=== PATIENT | female | born 1935 ===

== ENCOUNTER 2018-03-27 09:42 | Observation (INO) | payer MEDICARE ==
[2018-03-27 09:43] VITALS: BMI 20.7
--- NOTE | 2018-03-27 10:16 | C.PDOC ---
History Of Present Illness 82 y/o female with PMHx of DM, HTN, and arthritis, presents to the ED complaining of right-sided hip pain, worsening s/p fall last 03/20/18. Pain is worse with movement and ambulation. Patient reports she also fell earlier in the month on 03/11 and was evaluated outpatient with x-ray showing no acute fracture at that time. Patient has tried taking Tylenol without significant relief. States she was seen by her PMD, Dr. Merchant, who sent patient to the ED for further evaluation. Patient otherwise denies any numbness, tingl ing, focal weakness, chest pain, SOB, or other injuries. <Kita Chauhan - Last Filed: 03/27/18 13:01> History Per: Patient History/Exam Limitations: no limitations Onset/Duration Of Symptoms: Days Current Symptoms Are (Timing): Worse <Kita Chauhan - Last Filed: 03/27/18 13:01> <Lillie Viramontes - Last Filed: 04/04/18 11:48> Time Seen by Provider: 03/27/18 10:11 Chief Complaint (Nursing): Hip Pain Past Medical History Reviewed: Historical Data, Nursing Documentation, Vital Signs Vital Signs: Last Vital Signs Temp 98.4 F 03/27/18 09:58 Pulse 96 H 03/27/18 09:58 Resp 18 03/27/18 09:58 BP 161/77 H 03/27/18 09:58 Pulse Ox 96 03/27/18 09:58 - Medical History PMH: Arthritis, Colonic Polyps, Diabetes, HTN, Hypercholesterolemia, Kidney Stones (RIGHT; REMOVED 2012), Chronic Kidney Disease Other Surgeries: Left breast biopsy - [facility] Procedures COLONOSCOPY (05/03/14) Family History: States: No Known Family Hx - Social History Hx Alcohol Use: No Hx Substance Use: No - Immunization History Hx Tetanus Toxoid Vaccination: No Hx Influenza Vaccination: No Hx Pneumococcal Vaccination: No <Kita Chauhan - Last Filed: 03/27/18 13:01> Vital Signs: Last Vital Signs Temp 98.4 F 03/27/18 09:58 Pulse 96 H 03/27/18 09:58 Resp 18 03/27/18 09:58 BP 161/77 H 03/27/18 09:58 Pulse Ox 96 03/27/18 13:02 - [facility] Procedures COLONOSCOPY (05/03/14) <Lillie Viramontes - Last Filed: 04/04/18 11:48> Review Of Systems Except As Marked, All Systems Reviewed And Found Negative. Cardiovascular: Negative for: Chest Pain, Palpitations Respiratory: Negative for: Shortness of Breath Musculoskeletal: Positive for: Leg Pain (right hip pain) Skin: Negative for: Lesions, Bruising Neurological: Negative for: Weakness, Numbness, Incoordination <Kita Chauhan - Last Filed: 03/27/18 13:01> Physical Exam - Physical Exam Appears: Non-toxic, No Acute Distress Skin: Normal Color, Warm, Dry Head: Atraumatic, Normacephalic Eye(s): bilateral: Normal Inspection, PERRL, EOMI Oral Mucosa: Moist Neck: Normal ROM Chest: Symmetrical Cardiovascular: Rhythm Regular, No Murmur Respiratory: Normal Breath Sounds, No Accessory Muscle Use, Other (NARD) Gastrointestinal/Abdominal: Soft, No Tenderness, No Distention Back: No CVA Tenderness, No Vertebral Tenderness Extremity: Bilateral: Normal Color And Temperature, Other (Patient is weight bearing, + pain on ROM; No shortening or malrotation of bilateral LE) Pulses: Left Dorsalis Pedis: Normal, Right Dorsalis Pedis: Normal Neurological/Psych: Oriented x3, Normal Speech, Normal Cranial Nerves, Normal Motor, Normal Sensation, Other (No focal deficits) <Kita Chauhan - Last Filed: 03/27/18 13:01> ED Course And Treatment - Laboratory Results Result Diagrams: 03/27/18 11:00 03/27/18 11:00 ECG: Interpreted By Me, Viewed By Me ECG Rhythm: Sinus Rhythm ECG Interpretation: No Acute Changes Rate From EC O2 Sat by Pulse Oximetry: 96 (RA) Pulse Ox Interpretation: Normal - Other Rad Chest x-ray X-Ray: Read By Radiologist Interpretation: Accession No. : [id number]. Patient Name / ID : BRANDI RICHARDSON / [id number]. Exam Date : 03/27/2018 10:45:17 ( Approved ). Study Comment : Sex / Age : F / 82Y. Creator : Lisa Hartmann V. Dictator : Lisa Hartmann V. Information Support Project Manager : [employer] Charcoal Burner : Lisa Hartmann V. Approver2 : Report Date : 03/27/2018 11:07:50. My Comment : . Date of service: 03/27/2018. PROCEDURE: CHEST RADIOGRAPH, 1 VIEW. HISTORY: SYNCOPE. COMPARISON: 01/11/2017. FINDINGS: LUNGS: Clear. Clip apparently projecting over medial right lung base similar to before correlate clinically. May be superimposed over chest wall. No infiltrate. No mass seen. PLEURA: No pneumothorax or pleural fluid seen. CARDIOVASCULAR: There is presence of aortic atherosclerotic calcification on x- ray.. Tortuous thoracic aorta-as before. Probable top-normal heart size. No pulmonary venous congestion. OSSEOUS STRUCTURES: Mild dextroscoliosis and- similar. Mild bilateral shoulder arthrosis-similar. VISUALIZED UPPER ABDOMEN: Normal. OTHER FINDINGS: None. IMPRESSION: No interval pathology noted. XR R hip/pelvis X-Ray: Read By Radiologist Interpretation: Accession No. : [id number]. Patient Name / ID : BRANDI RICHARDSON R / [id number]. Exam Date : 03/27/2018 10:19:40 ( Approved ). Study Comment : Sex / Age : F / 82Y. Creator : Lisa Hartmann V. Dictator : Lisa Hartmann V. Information Support Project Manager : [employer] Charcoal Burner : Lisa Hartmann V. Approver2 : Report Date : 03/27/2018 10:48:51. My Comment : . Date of service: 03/27/2018. PROCEDURE: HISTORY: TRAUMA. COMPARISON: None. TECHNIQUE: AP pelvis and frog's leg view. FINDINGS: No fracture or dislocation. Bilateral superolateral hip joint space narrowing with bilateral superolateral acetabular spurring-actually left greater than right. L4-5 and L5-S1 sclerotic/hypertrophic facet arthrosis. Sacroiliac and pubic symphyseal joints unremarkable. IMPRESSION: No fracture or dislocation.. Degenerative changes as above <Kita Chauhan - Last Filed: 03/27/18 13:01> - Laboratory Results Result Diagrams: 03/28/18 07:35 03/27/18 11:00 - Physician Consult Information Physician Contacted: Travis Meza Outcome Of Conversation: Discussed patient with hospitalist, agrees with admission for syncope. <Lillie Viramontes - Last Filed: 04/04/18 11:48> Progress - Re-Evaluation Re-evaluation Note: 03/27/18 10:22 D/W DR MERCHANT: SP SYNCOPE 2 DAYS AGO ONSET AFTER WALKING TO BATHROOM, "SHE SAID NEXT THING SHE KNEW SHE WOKE UP ON FLOOR W EMESIS ON HER HERSELF". NOW W INTERMIT CRANDALL. CAD RISK FACTORS. NO HO KNOWN DYSRHYMTHIA, CAD. ADDL HX NOT RELATED BY PT DURING INITIAL EXAM. PT ADVISED NEED FOR ADMISSION FOR ADDITIONAL EVALUATION DUE TO SYNCOPE. PS DOES NOT WISH ADMISSION. EXPRESSES UNDERSTANDING IN ER OF RISKS OF LEAVING INCLUDING DISABILITY DETERIORATION AND . 03/27/18 12:04 D/W DR FOUNTAIN PT CARDIO WILL EVAL IN ER. DIMER PENDING. CT PENDING 03/27/18 12:23 +ABN DIMER. PS DOES NOT WANT ADMISSION PT AGAIN ADVISED NEED FOR ADMISSION AND ADVISED OF ABN RESULTS. NOW AGREES TO STAY - Data Reviewed Data Reviewed: Lab, Diagnostic imaging, EKG, Old records - Continuity of Care Discussed patient case with:: PMD <Kita Chauhan - Last Filed: 03/27/18 13:01> Medical Decision Making Medical Decision Making: Initial Impression: Right hip pain s/p fall Initial Plan: * X-ray right hip/pelvis * Toradol 30 mg IM * Lidoderm patch x1 After discussion w/ Dr. Merchant, ordered syncope work-up including CXR, EKG, labs. <Kita Chauhan - Last Filed: 11/01/18 13:01> Disposition Counseled Patient/Family Regarding: Studies Performed, Diagnosis - Disposition Disposition Time: 13:00 <Kita Chauhan - Last Filed: 03/27/18 13:01> - Disposition Disposition Time: 14:58 <Lillie Viramontes - Last Filed: 04/04/18 11:48> - Disposition Disposition: HOSPITALIZED Condition: STABLE - Clinical Impression Clinical Impression: Hip pain, Syncope, D-dimer, elevated - Scribe Statement The provider has reviewed the documentation as recorded by the Emilyibjennyfer Reyna Provider Attestation: All medical record entries made by the Emilyibjennyfer were at my direction and personally dictated by me. I have reviewed the chart and agree that the record accurately reflects my personal performance of the history, physical exam, medical decision making, and the department course for this patient. I have also personally directed, reviewed, and agree with the discharge instructions and disposition. <Kita Chauhan - Last Filed: 03/27/18 13:01> Physician Patient Turnover Patient Signed Over To: Lillie Viramontes Handoff Comments: FU CT, DISPO <Kita Chauhan - Last Filed: 03/27/18 13:01> Addendum Addendum: 03/27/18 14:32 Accession No. : [id number] Patient Name / ID : BRANDI RICHARDSON / [id number] Exam Date : 03/27/2018 13:34:33 ( Approved ) Study Comment : Sex / Age : F / 82Y Creator : Katlyn Allen MD Dictator : Katlyn Allen MD Information Support Project Manager : [employer] Charcoal Burner : Katlyn Allen MD Approver2 : Report Date : 03/27/2018 14:24:09 My Comment : Date of service: 03/27/2018 CTA chest PE protocol Indication: SYNCOPE r/o PE Technique: Contiguous axial images were obtained through the chest with intravenous contrast enhancement. Sagittal and coronal reconstructions were generated and reviewed. This CT exam was performed using 1 or more of the following dose reduction techniques: Automated exposure control, adjustment of the MAA and/or kV according to patient size, and/or use of iterative reconstruction technique. IV contrast: Radiation dose (DLP): 163.49 MGy-cm. Comparison: Chest x-ray performed 03/27/18 Findings: Visualized portions of the inferior thyroid gland appear unremarkable. The mediastinal and hilar vascular structures appear within normal limits. The heart appears within normal limits of size. Atherosclerotic calcification of the thoracic aorta. No large central or segmental pulmonary embolus evident. No focal consolidation. No pleural effusion. No pneumothorax. No suspicious pulmonary nodules measuring greater than 5 mm. Tiny calcified granulomas/lymph nodes at the right hilar region. Limited visualized portions of the upper abdomen appear grossly unremarkable. Degenerative changes of the spine. Right axillary clips. Right mastectomy. Impression: No large central or segmental pulmonary embolus identified. Additional findings as above. Accession No. : [id number] Patient Name / ID : BRANDI RICHARDSON / [id number] Exam Date : 03/27/2018 13:29:49 ( Approved ) Study Comment : Sex / Age : F / 82Y Creator : Katlyn Allen MD Dictator : Katlyn Allen MD Information Support Project Manager : [employer] Charcoal Burner : Katlyn Allen MD Approver2 : Report Date : 03/27/2018 13:45:22 My Comment : Date of service: 03/27/2018 PROCEDURE: CT HEAD WITHOUT CONTRAST. HISTORY: SYNCOPE, TRAUMA COMPARISON: Noncontrast head CT performed 07/25/17 TECHNIQUE: Axial computed tomography images were obtained through the head/brain without intravenous contrast. Radiation dose: Total exam DLP = 934.29 mGy-cm. This CT exam was performed using one or more of the following dose reduction techniques: Automated exposure control, adjustment of the mA and/or kV according to patient size, and/or use of iterative reconstruction technique. FINDINGS: Streak artifact obscures evaluation of the skull base. HEMORRHAGE: No intracranial hemorrhage. BRAIN: Diffuse atrophy with prominence of the ventricles and sulci noted. No mass effect or edema. Intracranial atherosclerosis. Scattered periventricular and subcortical white matter hypodensities, which are nonspecific, but often seen with chronic microvascular ischemic disease. Please note that MRI with diffusion imaging is more sensitive in the detection of acute ischemic event. VENTRICLES: No hydrocephalus. CALVARIUM: Unremarkable. PARANASAL SINUSES: Unremarkable as visualized. No significant inflammatory changes. MASTOID AIR CELLS: Unremarkable as visualized. No inflammatory changes. OTHER FINDINGS: None. IMPRESSION: Nonspecific white matter changes. Please note that MRI with diffusion imaging is more sensitive in the detection of acute ischemic event. <Lillie Viramontes - Last Filed: 04/04/18 11:48>
[2018-03-27] MEDS ORDERED: Lidocaine 5% Patch TD ONE ×2 (10:30→11:10)
--- NOTE | 2018-03-27 10:52 | RAD ---
Date of service: 03/27/2018 PROCEDURE: HISTORY: TRAUMA COMPARISON: None TECHNIQUE: AP pelvis and frog's leg view. FINDINGS: No fracture or dislocation. Bilateral superolateral hip joint space narrowing with bilateral superolateral acetabular spurring-actually left greater than right. L4-5 and L5-S1 sclerotic/hypertrophic facet arthrosis Sacroiliac and pubic symphyseal joints unremarkable IMPRESSION: No fracture or dislocation.. Degenerative changes as above
[2018-03-27 11:11] LABS: BASO # 0.1 K/uL (0.0-0.2); BASO % 0.5 % (0.0-2.0); EOS % 0.3 % (0.0-4.0); HEMOGLOBIN 11.7 g/dL (11.0-16.0); LYMPH # 1.1 K/uL (1.0-4.3); MEAN CELL VOLUME 92.6 fL (81.0-99.0); MEAN CORPUSCULAR HEMOGLOBIN 31.1 pg (27.0-31.0); MEAN CORPUSCULAR HGB CONC 33.6 g/dL (33.0-37.0); MEAN PLATELET VOLUME 8.1 fL (7.2-11.7); MONO # 0.8 K/uL (0.0-0.8); MONO % 6.7 % (0.0-10.0); NEUT # 10.2 K/uL (1.8-7.0); NEUT % 83.5 % (50.0-75.0); NRBC % 0.1 % (0.0-2.0); PLATELET COUNT 373 K/uL (130-400); RBC 3.75 Mil/uL (3.80-5.20); RED CELL DISTRIBUTION WIDTH 13.2 % (11.5-14.5); WHITE BLOOD COUNT 12.2 K/uL (4.8-10.8)
--- NOTE | 2018-03-27 11:11 | RAD ---
Date of service: 03/27/2018 PROCEDURE: CHEST RADIOGRAPH, 1 VIEW HISTORY: SYNCOPE COMPARISON: 01/11/2017 FINDINGS: LUNGS: Clear. Clip apparently projecting over medial right lung base similar to before correlate clinically. May be superimposed over chest wall. No infiltrate. No mass seen. PLEURA: No pneumothorax or pleural fluid seen. CARDIOVASCULAR: There is presence of aortic atherosclerotic calcification on x-ray.. Tortuous thoracic aorta-as before. Probable top-normal heart size. No pulmonary venous congestion OSSEOUS STRUCTURES: Mild dextroscoliosis and-similar. Mild bilateral shoulder arthrosis-similar VISUALIZED UPPER ABDOMEN: Normal. OTHER FINDINGS: None. IMPRESSION: No interval pathology noted.
[2018-03-27 11:26] LABS: ALB/GLOB RATIO 1.3 (1.0-2.1); ALBUMIN 4.3 g/dL (3.5-5.0); ALT/SGPT 41 U/L (9-52); AST/SGOT 81 U/L (14-36); BLOOD UREA NITROGEN 26 mg/dL (7-17); CALCIUM 10.1 mg/dl (8.6-10.4); GFR NON-AFRICAN AMERICAN 53
[2018-03-27 12:00] LABS: BASOPHIL 1 % (0-2); LYMPHOCYTE 8 % (20-40); MONOCYTE 4 % (0-10); NEUTROPHIL 87 % (50-75); PLATELET ESTIMATE NORMAL (NORMAL); TOTAL CELLS COUNTED 100
[2018-03-27] MEDS ORDERED: Iodixanol 320 MG/ML 100 ML BOTTLE IV ONE (13:25)
--- NOTE | 2018-03-27 13:49 | CT ---
Date of service: 03/27/2018 PROCEDURE: CT HEAD WITHOUT CONTRAST. HISTORY: SYNCOPE, TRAUMA COMPARISON: Noncontrast head CT performed 07/25/17 TECHNIQUE: Axial computed tomography images were obtained through the head/brain without intravenous contrast. Radiation dose: Total exam DLP = 934.29 mGy-cm. This CT exam was performed using one or more of the following dose reduction techniques: Automated exposure control, adjustment of the mA and/or kV according to patient size, and/or use of iterative reconstruction technique. FINDINGS: Streak artifact obscures evaluation of the skull base. HEMORRHAGE: No intracranial hemorrhage. BRAIN: Diffuse atrophy with prominence of the ventricles and sulci noted. No mass effect or edema. Intracranial atherosclerosis. Scattered periventricular and subcortical white matter hypodensities, which are nonspecific, but often seen with chronic microvascular ischemic disease. Please note that MRI with diffusion imaging is more sensitive in the detection of acute ischemic event. VENTRICLES: No hydrocephalus. CALVARIUM: Unremarkable. PARANASAL SINUSES: Unremarkable as visualized. No significant inflammatory changes. MASTOID AIR CELLS: Unremarkable as visualized. No inflammatory changes. OTHER FINDINGS: None. IMPRESSION: Nonspecific white matter changes. Please note that MRI with diffusion imaging is more sensitive in the detection of acute ischemic event.
--- NOTE | 2018-03-27 14:28 | CT ---
Date of service: 03/27/2018 CTA chest PE protocol Indication: SYNCOPE r/o PE Technique: Contiguous axial images were obtained through the chest with intravenous contrast enhancement. Sagittal and coronal reconstructions were generated and reviewed. This CT exam was performed using 1 or more of the following dose reduction techniques: Automated exposure control, adjustment of the MAA and/or kV according to patient size, and/or use of iterative reconstruction technique. IV contrast: Radiation dose (DLP): 163.49 MGy-cm. Comparison: Chest x-ray performed 03/27/18 Findings: Visualized portions of the inferior thyroid gland appear unremarkable. The mediastinal and hilar vascular structures appear within normal limits. The heart appears within normal limits of size. Atherosclerotic calcification of the thoracic aorta. No large central or segmental pulmonary embolus evident. No focal consolidation. No pleural effusion. No pneumothorax. No suspicious pulmonary nodules measuring greater than 5 mm. Tiny calcified granulomas/lymph nodes at the right hilar region. Limited visualized portions of the upper abdomen appear grossly unremarkable. Degenerative changes of the spine. Right axillary clips. Right mastectomy. Impression: No large central or segmental pulmonary embolus identified. Additional findings as above.
[2018-03-27 15:02] VITALS: RESP 20
[2018-03-27] MEDS ORDERED: Glucagon Recombinant 1 mg Inj IM PRN (17:33)
[2018-03-27] MEDS ORDERED: Dextrose 50% SYRINGE Inj (50 ml) IV PRN (17:33)
--- NOTE | 2018-03-27 17:37 | CP.PCM.HP ---
<Stefanie Bell - Last Filed: 03/27/18 17:22> History of Present Illness - History of Present Illness History of Present Illness: cc: "Dr. Merchant told me to." Ms. Arreola is a 82 year old female PMH hypertension, diabetes, hyperlipidemia, osteoporosis comes to [facility] after two falls in the last two weeks at the urging of her PMD, Dr. Merchant. On 03/11, she tripped while walking on the sidewalk. She fell onto her right side, landing on her elbow with no LOC and did not hit her head. She already had an appointment with Dr. Merchant, and was released with advice to take it easy. On 03/20 around 10am, she started feeling dizzy, started to sweat, and experienced a sudden hot flash while in her bathroom. She attempted to reach the window to open it, but lost consciousness. She woke up an undetermined amount of time later in a pool of NBNB vomit consisting of her breakfast: coffee, eggs, toast. She immediately began cleaning up and went about her day. Denied chest pain, shortness of breath, headache, nausea, joint swelling at that time. Yesterday, 03/26, Dr. Merchant called the pat ient to follow up with the first fall. The patient explained the events and was encouraged to come to the ED. Patient refused. However, this morning, she once again experienced dizziness and began to be flushed. She sat down, which allowed her to not fall nor lose consciousness, and came to the ED. PMD: Dr. Merchant Cardio: Dr. Mendoza PMH: HTN, DM, HLD, osteoporosis Med: ASA, Fenofibrate, Simvastatin, Valsartan, Amlodipine, Metformin, Alendronate All: NKDA FamHx: Father - DM, both sides: HTN. Denies [place], stroke, [place] SocHx: Denies ever tobacco, alcohol, illicit drugs SurgHx: 1996 - R total mastectomy, 2013 - colonoscopy, 2017 - bilateral cataract removal Cmm Inspector: menopause at 49, denies sexual activity Proxy: refuses. Son lives in [place] - Edward Stauffer DNR/DNI Present on Admission - Present on Admission Any Indicators Present on Admission: No Review of Systems - Constitutional Constitutional: Excessive Sweating, Fatigue, Weight Loss, Weakness. absent: Chills, Fever, Frequent Falls, Headache, Night Sweats - EENT Eyes: absent: Blurred Vision, Change in Vision, Diplopia Ears: absent: Decreased Hearing, Tinnitus Nose/Mouth/Throat: absent: Dysphagia, Odynophagia - Cardiovascular Cardiovascular: Syncope. absent: Chest Pain, Diaphoresis, Dyspnea, Dyspnea on Exertion, Irregular Heart Rhythm, Orthopnea - Respiratory Respiratory: absent: Cough, Dyspnea, Hemoptysis, Dyspnea on Exertion - Gastrointestinal Gastrointestinal: Vomiting. absent: Constipation, Diarrhea, Dysphagia, Nausea - Genitourinary Genitourinary: Urinary Frequency. absent: Difficulty Urinating, Urinary Hesitance, Urinary Urgency, Freq UTI - Reproductive: Female Reproductive:Female: Menopausal - Musculoskeletal Musculoskeletal: Abnormal Gait, Back Pain, Limited Range of Motion, Muscle Weakness. absent: Deformity, Joint Swelling, Numbness, Tingling - Integumentary Integumentary: Swelling. absent: Rash, Skin Ulcer, Sores - Neurological Neurological: Abnormal Gait, Dizziness, Headaches, Syncope, Weakness. absent: Abnormal Hearing, Burning Sensations, Confusion, Convulsions, Focal Weakness, Tingling - Psychiatric Psychiatric: absent: Confusion, Hallucinations - Endocrine Endocrine: Excessive Sweating, Fatigue, Flushing, Polyuria. absent: Heat Intolorance - Hematologic/Lymphatic Hematologic: absent: Easy Bleeding, Easy Bruising Past Patient History - Infectious Disease Hx of Infectious Diseases: None - Past Medical History & Family History Past Medical History?: Yes Pertinent Family History: Father - DM. both sides: HTN - Past Social History Smoking Status: Never Smoked Alcohol: None Drugs: Denies - CARDIAC Hx Cardiac Disorders: Yes Hx Hypercholesterolemia: Yes Hx Hypertension: Yes - PULMONARY Hx Respiratory Disorders: No - NEUROLOGICAL Hx Neurological Disorder: Yes Hx Vertigo: Yes - HEENT Hx HEENT Problems: Yes Hx Cataracts: Yes (LEFT EYE) - RENAL Hx Chronic Kidney Disease: Yes Hx Kidney Stones: Yes (RIGHT; REMOVED 2012) - ENDOCRINE/METABOLIC Hx Endocrine Disorders: Yes Hx Diabetes Mellitus Type 2: Yes - HEMATOLOGICAL/ONCOLOGICAL Hx Blood Disorders: No - INTEGUMENTARY Hx Dermatological Problems: No - MUSCULOSKELETAL/RHEUMATOLOGICAL Hx Musculoskeletal Disorders: Yes Hx Arthritis: Yes Hx Falls: Yes - GASTROINTESTINAL Hx Gastrointestinal Disorders: No - GENITOURINARY/GYNECOLOGICAL Hx Genitourinary Disorders: No - PSYCHIATRIC Hx Psychophysiologic Disorder: No Hx Substance Use: No - SURGICAL HISTORY Hx Surgeries: Yes Hx Breast Biopsy: Yes (LEFT BREAST) Hx Mastectomy: Yes - ANESTHESIA Hx Anesthesia: Yes Hx Anesthesia Reactions: No Hx Malignant Hyperthermia: No Has any member of the family had a problem w/ anesthesia?: No Meds Allergies/Adverse Reactions: Allergies Allergy/AdvReac Type Severity Reaction Status Date / Time No Known Allergies Allergy Verified 05/03/14 08:21 Physical Exam - Constitutional Appears: Well, No Acute Distress - Head Exam Head Exam: ATRAUMATIC, NORMOCEPHALIC - Eye Exam Eye Exam: EOMI, PERRL - ENT Exam ENT Exam: Mucous Membranes Moist - Neck Exam Neck exam: Positive for: Normal Inspection. Negative for: Lymphadenopathy, Thyromegaly - Respiratory Exam Respiratory Exam: Clear to Auscultation Bilateral, NORMAL BREATHING PATTERN. absent: Accessory Muscle Use, Rales, Rhonchi, Wheezes - Cardiovascular Exam Cardiovascular Exam: REGULAR RHYTHM, +S1, +S2. absent: Gallop, Rubs, Systolic Murmur - GI/Abdominal Exam GI & Abdominal Exam: Normal Bowel Sounds, Soft. absent: Distended, Firm, Guar ding, Tenderness - Extremities Exam Extremities exam: Positive for: normal capillary refill, pedal pulses present. Negative for: joint swelling, pedal edema Additional comments: Lateral aspect of R elbow: 2in x 1.5 in well healing yellow/green bruise appropriate with stated timeline Limited Active ROM in F/E/Abduction of R hip. Full ROM of L hip. Patient unable to relax to test Passive ROM Muscle strength: 4/5 throughout peripheral pulses palpable bilaterally (radial, DP, PT) IV access in L forearm - Back Exam Back exam: muscle spasm, tenderness. absent: CVA tenderness (L), CVA tenderness (R), paraspinal tenderness, vertebral tenderness Additional comments: TTP above sacrum where patient fell. Lidoderm patch in place - Neurological Exam Neurological exam: Abnormal Gait, Alert, CN II-XII Intact, Oriented x3, Reflexes Normal Additional comments: Able to weight bear, limp preferring weight bearing on L side - Psychiatric Exam Psychiatric exam: Normal Affect, Normal Mood - Skin Skin Exam: Dry, Intact, Normal Color, Warm Additional comments: except noted above Results - Vital Signs Recent Vital Signs: Last Vital Signs Temp 98 F 03/27/18 16:31 Pulse 88 03/27/18 16:31 Resp 20 03/27/18 16:31 BP 146/68 03/27/18 16:31 Pulse Ox 98 03/27/18 16:31 - Labs Result Diagrams: 03/27/18 11:00 03/27/18 11:00 Labs: Laboratory Results - last 24 hr 03/27/18 03/27/18 03/27/18 11:00 11:00 11:00 WBC 12.2 H RBC 3.75 L Hgb 11.7 Hct 34.7 MCV 92.6 MCH 31.1 H MCHC 33.6 RDW 13.2 Plt Count 373 MPV 8.1 Neut % (Auto) 83.5 H Lymph % (Auto) 9.0 L [place] % (Auto) 6.7 Eos % (Auto) 0.3 Baso % (Auto) 0.5 Neut # (Auto) 10.2 H Lymph # (Auto) 1.1 [place] # (Auto) 0.8 Eos # (Auto) 0.0 Baso # (Auto) 0.1 Neutrophils % (Manual) 87 H Lymphocytes % (Manual) 8 L Monocytes % (Manual) 4 Basophils % (Manual) 1 Platelet Estimate Normal RBC Morphology Normal D-Dimer, Quantitative 1663 H Sodium 141 Potassium 4.2 Chloride 106 Carbon Dioxide 24 Anion Gap 16 BUN 26 H Creatinine 1.0 Est GFR ( Amer) > 60 Est GFR (Non-Af Amer) 53 POC Glucose (mg/dL) Random Glucose 124 H Calcium 10.1 Total Bilirubin 0.9 AST 81 H D ALT 41 Alkaline Phosphatase 126 D Total Protein 7.6 Albumin 4.3 Globulin 3.2 Albumin/Globulin Ratio 1.3 03/27/18 11:42 WBC RBC Hgb Hct MCV MCH MCHC RDW Plt Count MPV Neut % (Auto) Lymph % (Auto) [place] % (Auto) Eos % (Auto) Baso % (Auto) Neut # (Auto) Lymph # (Auto) [place] # (Auto) Eos # (Auto) Baso # (Auto) Neutrophils % (Manual) Lymphocytes % (Manual) Monocytes % (Manual) Basophils % (Manual) Platelet Estimate RBC Morphology D-Dimer, Quantitative Sodium Potassium Chloride Carbon Dioxide Anion Gap BUN Creatinine Est GFR ( Amer) Est GFR (Non-Af Amer) POC Glucose (mg/dL) 114 H Random Glucose Calcium Total Bilirubin AST ALT Alkaline Phosphatase Total Protein Albumin Globulin Albumin/Globulin Ratio - EKG Data EKG Interpreted by: ER Physician EKG shows normal: Sinus rhythm Rate: Normal Assessment & Plan - Assessment and Plan (Free Text) Assessment: Ms. Arreola is a 82yo female PMH HTN, DM, HLD, osteoporosis admitted for syncope workup s/p 2 recent falls. Plan: Syncope with two recent falls - CXR (03/27): no interval pathology noted - XR Hip/Pelvis (03/27): no fracture or dislocation - CT Head (03/27): Nonspecific white matter changes. No acute findings. - d-dimer 1663 - CTA (03/27): no large central or segmental PE identified - f/u TSH, free T4 - f/u total CK, CK-MM, CK-MB - f/u VitB12, folate, RPR (with reflex FTA-ABS) - f/u ROMIs and EKGs @ 4:30pm, 10pm, 4am - f/u ECHO - f/u carotid Doppler - f/u XR R elbow - Lidoderm patch TOP daily for back pain - fall risk protocol - Cardio consulted: Dr. eMndoza - artemio appreciated - Neuro consulted: Dr. Newman - artemio appreciated Leukocytosis with left shift - likely 2/2 stress response - WBC 12.2 on admission - afebrile and hemodynamically stable - f/u UA - reflex urine c/s if positive - CXR (03/27): no active pulmonary disease - will hold off on blood and urine Cx for now - monitor with AM labs Hypertension - f/u lipid panel - home Valsartan 80mg po daily - home Amlodipine 5mg po daily - staggered so Valsartan in AM and Amlodipine in PM - monitor vitals Hyperlipidemia - home ASA 81mg po daily - home Simvastatin 20mg -> Crestor 5mg po HS - home Fenofibrate 145mg po daily Diabetes Mellitus - f/u Hgb A1c - hold home Metformin 500mg po daily d/t CTA IV contrast. Will restart on Sat evening, 48hrs after CTA. - Accuchecks ACHS - mod ISS - hypoglycemia protocol Osteoporosis - held home Fosamax 1 tab po q7d d/t unknown day of the week - Calcium/VitD 500/200 supplement 1 tab po tid PPx - DVT: Heparin 5000u sc q8, SCDs - GI: not indicated - Diet: HHD 2g Na, low carb - PT/OT consulted d/w Dr. Zay Bell PGY-1 - Date & Time Date: 03/27/18 Time: 16:15 <Travis Meza - Last Filed: 03/30/18 20:34> Results - Vital Signs Recent Vital Signs: Last Vital Signs Temp 98.0 F 03/28/18 15:00 Pulse 80 03/28/18 15:00 Resp 20 03/28/18 15:00 BP 141/69 03/28/18 15:00 Pulse Ox 97 03/28/18 15:00 - Labs Result Diagrams: 03/28/18 07:35 03/27/18 11:00 Attending/Attestation - Attestation I have personally seen and examined this patient.: Yes I have fully participated in the care of the patient.: Yes I have reviewed all pertinent clinical information: Yes Notes (Text): 03/30/18 20:33 This is a late entry. History, Physical, Assessment and Plan, and all orders were gone over with the resident. Travis Meza D.O.
[2018-03-27] MEDS: Calcium-Vit D 500 mg-200 Units Tab UD PO SCH (17:57)
[2018-03-27 18:31] LABS: CK-MB 0.44 ng/mL (0.0-3.38)
--- NOTE | 2018-03-27 18:56 | CP.PCM.CON ---
History of Present Illness - History of Present Illness History of Present Illness: Neurology Consultation Note: Mrs. Arreola is an 82-year-old woman, who was referred to me by Dr. Bell, with a past medical history of DM, HTN, HLD, who presented to the ED yesterday after complaining of dizziness to her PMD. According to the patient, about a week ago, she had a fall after rising from the toilet and lost consciousness. She did not sustain any injuries. She did not have any urinary/bowel incontinence, tongue biting, etc. The fall was not witnessed. However, about a week earlier than that fall, she had another fall without loss of consciousness, but did feel dizzy. She states that prior to the fall, she was feeling light-headed. Review of Systems - Constitutional Constitutional: As Per HPI - EENT Eyes: absent: As Per HPI, Blind Spots, Blurred Vision, Change in Vision, Decreased Night Vision, Diplopia, Discharge, Dry Eye, Exophthalmos, Floaters, Irritation, Itchy Eyes, Loss of Peripheral Vision, Pain, Photophobia, Requires Corrective Lenses, Sees Flashes, Spots in Vision, Tunnel Vision, Other Visual Disturbances, Loss of Vision, Other Ears: absent: As Per HPI, Decreased Hearing, Ear Discharge, Ear Pain, Tinnitus, Abnormal Hearing, Disequilibrium, Dizziness, Other Nose/Mouth/Throat: absent: As Per HPI, Epistaxis, Nasal Congestion, Nasal Di scharge, Nasal Obstruction, Nasal Trauma, Nose Pain, Post Nasal Drip, Sinus Pain, Sinus Pressure, Bleeding Gums, Change in Voice, Dental Pain, Dry Mouth, Dysphagia, Halitosis, Hoarsness, Lip Swelling, Mouth Lesions, Mouth Pain, Odynophagia, Sore Throat, Throat Swelling, Tongue Swelling, Facial Pain, Neck Pain, Neck Mass, Other - Breasts Breasts: absent: As Per HPI, Change in Shape, Mass, Pain, Nipple Discharge, Nipple Inversion, Skin Changes, Swelling, Other - Cardiovascular Cardiovascular: absent: As Per HPI, Acrocyanosis, Chest Pain, Chest Pain at Rest, Chest Pain with Activity, Claudication, Diaphoresis, Dyspnea, Dyspnea on Exertion, Edema, Irregular Heart Rhythm, Pain Radiating to Arm/Neck/Jaw, Leg Edema, Leg Ulcers, Lightheadedness, Orthopnea, Palpitations, Paroxysmal Nocturnal Dyspnea, Pedal Edema, Radiating Pain, Rapid Heart Rate, Slow Heart Rate, Syncope, Other - Respiratory Respiratory: absent: As Per HPI, Cough, Dyspnea, Hemoptysis, Dyspnea on Exertion, Wheezing, Snoring, Stridor, Pain on Inspiration, Chest Congestion, Excessive Mucous Production, Change in Mucous Color, Pain with Coughing, Other - Gastrointestinal Gastrointestinal: absent: As Per HPI, Abdominal Pain, Belching, Bloating, Change in Bowel Habits, Change in Stool Character, Coffee Ground Emesis, Constipation, Cramping, Diarrhea, Dyspepsia, Dysphagia, Early Satiety, Excessive Flatus, Fecal Incontinence, Heartburn, Hematemesis, Hematochezia, Loose Stools, Melena, Nausea, Odynophagia, Temesmus, Vomiting, Other - Genitourinary Genitourinary: absent: As Per HPI, Change in Urinary Stream, Difficulty Urinating, Dysuria, Flank Pain, Hematuria, Pyuria, Nocturia, Urinary Incontinence, Urinary Frequency, Urinary Hesitance, Urinary Urgency, Voiding Freq/Small Amts, Freq UTI, Hx Renal/Bladder Calculi, Hx /Renal Surgery, Bladder Distension, Other - Musculoskeletal Musculoskeletal: absent: As Per HPI, Abnormal Gait, Arthralgias, Atrophy, Back Pain, Deformity, Joint Swelling, Limited Range of Motion, Loss of Height, Muscle Cramps, Muscle Weakness, Myalgias, Neck Pain, Numbness, Radiating Pain into Limb, Stiffness, Tingling, Other - Integumentary Integumentary: absent: As Per HPI, Acne, Alopecia, Bleeding Lesions, Change in Hair, Change in Nails, Change in Pigmentation, Changing Lesions, Dry Skin, Erythema, Furuncle, Hirsutism, Lesions, New Lesions, Non-Healing Lesions, Photosensitivity, Pruritus, Rash, Skin Pain, Skin Ulcer, Sores, Striae, Swelling, Unusual Bruising, Wounds, Jaundice, Other - Neurological Neurological: As Per HPI - Psychiatric Psychiatric: absent: As Per HPI, Abnormal Sleep Pattern, Anhedonia, Anxiety, Auditory Hallucinations, Behavioral Changes, Change in Appetite, Change in Libido, Confusion, Depression, Difficulty Concentrating, Hallucinations, Homicidal Ideation, Hopelessness, Irritability, Memory Loss, Mood Swings, Panic Attacks, Paranoia, Suicidal Ideation, Visual Hallucinations, Tactile Hallucinations, Other - Endocrine Endocrine: absent: As Per HPI, Change in Body Appearance, Change in Libido, Cold Intolorance, Deepening of Voice, Excessive Sweating, Fatigue, Flushing, Heat Intolorance, Increase in Ring/Shoe/Hat Size, Palpitations, Polydipsia, Polyphagia, Polyuria, Other - Hematologic/Lymphatic Hematologic: absent: As Per HPI, Easy Bleeding, Easy Bruising, Lymphadenopathy, Other Past Patient History - Infectious Disease Hx of Infectious Diseases: None - Past Medical History & Family History Past Medical History?: Yes - Past Social History Smoking Status: Never Smoked Alcohol: None Drugs: Denies - CARDIAC Hx Cardiac Disorders: Yes Hx Hypercholesterolemia: Yes Hx Hypertension: Yes - PULMONARY Hx Respiratory Disorders: No - NEUROLOGICAL Hx Neurological Disorder: Yes Hx Vertigo: Yes - HEENT Hx HEENT Problems: Yes Hx Cataracts: Yes (LEFT EYE) - RENAL Hx Chronic Kidney Disease: Yes Hx Kidney Stones: Yes (RIGHT; REMOVED 2012) - ENDOCRINE/METABOLIC Hx Endocrine Disorders: Yes Hx Diabetes Mellitus Type 2: Yes - HEMATOLOGICAL/ONCOLOGICAL Hx Blood Disorders: No - INTEGUMENTARY Hx Dermatological Problems: No - MUSCULOSKELETAL/RHEUMATOLOGICAL Hx Musculoskeletal Disorders: Yes Hx Arthritis: Yes Hx Falls: Yes - GASTROINTESTINAL Hx Gastrointestinal Disorders: No - GENITOURINARY/GYNECOLOGICAL Hx Genitourinary Disorders: No - PSYCHIATRIC Hx Psychophysiologic Disorder: No Hx Substance Use: No - SURGICAL HISTORY Hx Surgeries: Yes Hx Breast Biopsy: Yes (LEFT BREAST) Hx Mastectomy: Yes - ANESTHESIA Hx Anesthesia: Yes Hx Anesthesia Reactions: No Hx Malignant Hyperthermia: No Has any member of the family had a problem w/ anesthesia?: No Meds Allergies/Adverse Reactions: Allergies Allergy/AdvReac Type Severity Reaction Status Date / Time No Known Allergies Allergy Verified 05/03/14 08:21 - Medications Medications: Current Medications Amlodipine Besylate (Norvasc) 5 mg PO HS SUSAN Aspirin (Ecotrin) 81 mg PO DAILY [facility] Calcium/Vitamin D (Oyster Shell Calcium/Vitamin D 500 Mg-200 Iu) 1 tab PO TID [facility] Last Admin: 03/27/18 17:57 Dose: 1 tab Dextrose (Dextrose 50% Inj) 0 ml IV STAT PRN; Protocol PRN Reason: Hypoglycemia Protocol Dextrose (Glutose 15) 0 gm PO ONCE PRN; Protocol PRN Reason: Hypoglycemia Protocol Fenofibrate (Tricor) 145 mg PO DAILY [facility] Glucagon (Glucagen Diagnostic Kit) 0 mg IM STAT PRN; Protocol PRN Reason: Hypoglycemia Protocol Heparin Sodium (Porcine) (Heparin) 5,000 units SC Q8 SUSAN Dextrose (Dextrose 5% In Water 1000 Ml) 1,000 mls @ 0 mls/hr IV .Q0M PRN; Protocol PRN Reason: Hypoglycemia Protocol Insulin Aspart (Novolog) 0 unit SC ACHS SUSAN; Protocol Lidocaine (Lidoderm) 1 ea TD DAILY SUASN Losartan Potassium (Cozaar) 50 mg PO DAILY SUSAN Rosuvastatin Calcium (Crestor) 5 mg PO HS SUSAN Physical Exam - Constitutional Appears: Well - Head Exam Head Exam: ATRAUMATIC, NORMAL INSPECTION, NORMOCEPHALIC - Eye Exam Eye Exam: EOMI, Normal appearance, PERRL - ENT Exam ENT Exam: Mucous Membranes Moist, Normal Exam - Neck Exam Neck exam: Positive for: Normal Inspection - Respiratory Exam Respiratory Exam: Clear to Auscultation Bilateral, NORMAL BREATHING PATTERN - Cardiovascular Exam Cardiovascular Exam: REGULAR RHYTHM, +S1, +S2 - GI/Abdominal Exam GI & Abdominal Exam: Normal Bowel Sounds, Soft. absent: Tenderness - Rectal Exam Rectal Exam: Deferred - Back Exam Back exam: NORMAL INSPECTION - Neurological Exam Neurological exam: Alert, CN II-XII Intact, Normal Gait, Oriented x3, Reflexes Normal - Psychiatric Exam Psychiatric exam: Normal Affect, Normal Mood - Skin Skin Exam: Dry, Intact, Normal Color, Warm Results - Vital Signs Recent Vital Signs: Last Vital Signs Temp 98 F 03/27/18 16:31 Pulse 88 03/27/18 16:31 Resp 20 03/27/18 16:31 BP 146/68 03/27/18 16:31 Pulse Ox 98 03/27/18 16:31 - Labs Result Diagrams: 03/27/18 11:00 03/27/18 11:00 Labs: Laboratory Results - last 24 hr 03/27/18 03/27/18 03/27/18 11:00 11:00 11:00 WBC 12.2 H RBC 3.75 L Hgb 11.7 Hct 34.7 MCV 92.6 MCH 31.1 H MCHC 33.6 RDW 13.2 Plt Count 373 MPV 8.1 Neut % (Auto) 83.5 H Lymph % (Auto) 9.[address] [place] % (Auto) 6.7 Eos % (Auto) 0.3 Baso % (Auto) 0.5 Neut # (Auto) 10.2 H Lymph # (Auto) 1.1 [place] # (Auto) 0.8 Eos # (Auto) 0.0 Baso # (Auto) 0.1 Neutrophils % (Manual) 87 H Lymphocytes % (Manual) 8 L Monocytes % (Manual) 4 Basophils % (Manual) 1 Platelet Estimate Normal RBC Morphology Normal D-Dimer, Quantitative 1663 H Sodium 141 Potassium 4.2 Chloride 106 Carbon Dioxide 24 Anion Gap 16 BUN 26 H Creatinine 1.0 Est GFR ( Amer) > 60 Est GFR (Non-Af Amer) 53 POC Glucose (mg/dL) Random Glucose 124 H Calcium 10.1 Total Bilirubin 0.9 AST 81 H D ALT 41 Alkaline Phosphatase 126 D Total Creatine Kinase CK-MB (Mass) Troponin I Total Protein 7.6 Albumin 4.3 Globulin 3.2 Albumin/Globulin Ratio 1.3 Free T4 TSH 3rd Generation 03/27/18 03/27/18 03/27/18 11:42 17:48 17:48 WBC RBC Hgb Hct MCV MCH MCHC RDW Plt Count MPV Neut % (Auto) Lymph % (Auto) [place] % (Auto) Eos % (Auto) Baso % (Auto) Neut # (Auto) Lymph # (Auto) [place] # (Auto) Eos # (Auto) Baso # (Auto) Neutrophils % (Manual) Lymphocytes % (Manual) Monocytes % (Manual) Basophils % (Manual) Platelet Estimate RBC Morphology D-Dimer, Quantitative Sodium Potassium Chloride Carbon Dioxide Anion Gap BUN Creatinine Est GFR ( Amer) Est GFR (Non-Af Amer) POC Glucose (mg/dL) 114 H Random Glucose Calcium Total Bilirubin AST ALT Alkaline Phosphatase Total Creatine Kinase 29 L CK-MB (Mass) 0.44 Troponin I < 0.0120 Total Protein Albumin Globulin Albumin/Globulin Ratio Free T4 1.59 TSH 3rd Generation 1.41 Assessment & Plan (1) Syncope Assessment and Plan: Based on the history of standing up after a bowel movement, and having dizziness followed by a syncopal episode, the patient likely has neuro-cardiogenic or vasovagal syncope. However, since the events have occurred twice in the last two weeks, I recommend work-up with CTA of the head/neck to rule out vertebro- basilar insufficiency. There is no indication that the events were seizures. Cardiac work-up is also recommended. Thank you for this consultation. Status: Acute Priority: Medium
[2018-03-27 19:17] LABS: SQUAMOUS EPITHIAL 1 /hpf (0-5); URINE BILIRUBIN NEGATIVE (NEGATIVE); URINE BLOOD 1+ (NEGATIVE); URINE CLARITY Clear (Clear); URINE COLOR Yellow (YELLOW); URINE GLUCOSE (UA) NORMAL (Normal); URINE LEUKOCYTE ESTERASE NEG Leu/uL (Negative); URINE PROTEIN NEGATIVE (NEGATIVE)
--- NOTE | 2018-03-27 21:54 | CP.PCM.CON ---
History of Present Illness - History of Present Illness History of Present Illness: cc: Syncope Ms. Arreola is a 82 year old female PMH hypertension, diabetes, hyperlipidemia, osteoporosis comes to [facility] after two falls in the last two weeks at the urging of her PMD, Dr. Merchant. On 03/11, she tripped while walking on the sidewalk. She fell onto her right side, landing on her elbow with no LOC and did not hit her head. She already had an appointment with Dr. Merchant, and was released with advice to take it easy. On 03/20 around 10am, she started feeling dizzy, started to sweat, and experienced a sudden hot flash while in her bathroom. She attempted to reach the window to open it, but lost consciousness. She woke up an undetermined amount of time later in a pool of NBNB vomit consisting of her breakfast: coffee, eggs, toast. She immediately began cleaning up and went about her day. Denied chest pain, shortness of breath, headache, nausea, joint swelling at that time. Yesterday, 03/26, Dr. Merchant called the patient to follow up with the first fall. The patient explained the events and was encouraged to come to the ED. Patient refused. However, this morning, she once again experienced dizziness and began to be flushed. She sat down, which allowed her to not fall nor lose consciousness, and came to the ED. PMD: Dr. Merchant PMH: HTN, DM, HLD, osteoporosis Med: ASA, Fenofibrate, Simvastatin, Valsartan, Amlodipine, Metformin, Alendronate All: NKDA FamHx: Father - DM, both sides: HTN. 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 Son lives in [place] - Edward Stauffer DNR/DNI Present on Admission - Present on Admission Any Indicators Present on Admission: No Review of Systems - Constitutional Constitutional: Excessive Sweating, Fatigue, Weight Loss, Weakness. absent: C hills, Fever, Frequent Falls, Headache, Night Sweats - EENT Eyes: absent: Blurred Vision, Change in Vision, Diplopia Ears: absent: Decreased Hearing, Tinnitus Nose/Mouth/Throat: absent: Dysphagia, Odynophagia - Cardiovascular Cardiovascular: Syncope. absent: Chest Pain, Diaphoresis, Dyspnea, Dyspnea on Exertion, Irregular Heart Rhythm, Orthopnea - Respiratory Respiratory: absent: Cough, Dyspnea, Hemoptysis, Dyspnea on Exertion - Gastrointestinal Gastrointestinal: Vomiting. absent: Constipation, Diarrhea, Dysphagia, Nausea - Genitourinary Genitourinary: Urinary Frequency. absent: Difficulty Urinating, Urinary Hesitance, Urinary Urgency, Freq UTI - Reproductive: Female Reproductive:Female: Menopausal - Musculoskeletal Musculoskeletal: Abnormal Gait, Back Pain, Limited Range of Motion, Muscle Weakness. absent: Deformity, Joint Swelling, Numbness, Tingling - Integumentary Integumentary: Swelling. absent: Rash, Skin Ulcer, Sores - Neurological Neurological: Abnormal Gait, Dizziness, Headaches, Syncope, Weakness. absent: Abnormal Hearing, Burning Sensations, Confusion, Convulsions, Focal Weakness, Tingling - Psychiatric Psychiatric: absent: Confusion, Hallucinations - Endocrine Endocrine: Excessive Sweating, Fatigue, Flushing, Polyuria. absent: Heat Intolorance - Hematologic/Lymphatic Hematologic: absent: Easy Bleeding, Easy Bruising Past Patient History - Infectious Disease Hx of Infectious Diseases: None - Past Medical History & Family History Past Medical History?: Yes Pertinent Family History: Father - DM. both sides: HTN - Past Social History Smoking Status: Never Smoked Alcohol: None Drugs: Denies - CARDIAC Hx Cardiac Disorders: Yes Hx Hypercholesterolemia: Yes Hx Hypertension: Yes - PULMONARY Hx Respiratory Disorders: No - NEUROLOGICAL Hx Neurological Disorder: Yes Hx Vertigo: Yes - HEENT Hx HEENT Problems: Yes Hx Cataracts: Yes (LEFT EYE) - RENAL Hx Chronic Kidney Disease: Yes Hx Kidney Stones: Yes (RIGHT; REMOVED 2012) - ENDOCRINE/METABOLIC Hx Endocrine Disorders: Yes Hx Diabetes Mellitus Type 2: Yes - HEMATOLOGICAL/ONCOLOGICAL Hx Blood Disorders: No - INTEGUMENTARY Hx Dermatological Problems: No - MUSCULOSKELETAL/RHEUMATOLOGICAL Hx Musculoskeletal Disorders: Yes Hx Arthritis: Yes Hx Falls: Yes - GASTROINTESTINAL Hx Gastrointestinal Disorders: No - GENITOURINARY/GYNECOLOGICAL Hx Genitourinary Disorders: No - PSYCHIATRIC Hx Psychophysiologic Disorder: No Hx Substance Use: No - SURGICAL HISTORY Hx Surgeries: Yes Hx Breast Biopsy: Yes (LEFT BREAST) Hx Mastectomy: Yes - ANESTHESIA Hx Anesthesia: Yes Hx Anesthesia Reactions: No Hx Malignant Hyperthermia: No Has any member of the family had a problem w/ anesthesia?: No Meds Allergies/Adverse Reactions: Allergies Allergy/AdvReac Type Severity Reaction Status Date / Time No Known Allergies Allergy Verified 05/03/14 08:21 Physical Exam - Constitutional Appears: Well, No Acute Distress - Head Exam Head Exam: ATRAUMATIC, NORMOCEPHALIC - Eye Exam Eye Exam: EOMI, PERRL - ENT Exam ENT Exam: Mucous Membranes Moist - Neck Exam Neck exam: Positive for: Normal Inspection. Negative for: Lymphadenopathy, Thyromegaly - Respiratory Exam Respiratory Exam: Clear to Auscultation Bilateral, NORMAL BREATHING PATTERN. absent: Accessory Muscle Use, Rales, Rhonchi, Wheezes - Cardiovascular Exam Cardiovascular Exam: REGULAR RHYTHM, +S1, +S2. absent: Gallop, Rubs, Systolic Murmur - GI/Abdominal Exam GI & Abdominal Exam: Normal Bowel Sounds, Soft. absent: Distended, Firm, Guarding, Tenderness - Extremities Exam Extremities exam: Positive for: normal capillary refill, pedal pulses present. Negative for: joint swelling, pedal edema Additional comments: Lateral aspect of R elbow: 2in x 1.5 in well healing yellow/green bruise appropriate with stated timeline Limited Active ROM in F/E/Abduction of R hip. Full ROM of L hip. Patient unable to relax to test Passive ROM Muscle strength: 4/5 throughout peripheral pulses palpable bilaterally (radial, DP, PT) IV access in L forearm - Back Exam Back exam: muscle spasm, tenderness. absent: CVA tenderness (L), CVA tenderness (R), paraspinal tenderness, vertebral tenderness Additional comments: TTP above sacrum where patient fell. Lidoderm patch in place - Neurological Exam Neurological exam: Abnormal Gait, Alert, CN II-XII Intact, Oriented x3, Reflexes Normal Additional comments: Able to weight bear, limp preferring weight bearing on L side - Psychiatric Exam Psychiatric exam: Normal Affect, Normal Mood - Skin Skin Exam: Dry, Intact, Normal Color, Warm Additional comments: except noted above - EKG Data EKG Interpreted by: ER Physician EKG shows normal: Sinus rhythm Rate: Normal Assessment & Plan - Assessment and Plan (Free Text) Assessment: Ms. Arreola is a 82yo female PMH HTN, DM, HLD, osteoporosis admitted for syncope workup s/p 2 recent falls. Plan: Syncope with two recent falls - CXR (03/27): no interval pathology noted - XR Hip/Pelvis (03/27): no fracture or dislocation - CT Head (03/27): Nonspecific white matter changes. No acute findings. - d-dimer 1663 - CTA (03/27): no large central or segmental PE identified - f/u TSH, free T4 - f/u total CK, CK-MM, CK-MB - f/u VitB12, folate, RPR (with reflex FTA-ABS) - f/u ROMIs and EKGs @ 4:30pm, 10pm, 4am - f/u ECHO - f/u carotid Doppler - f/u XR R elbow - Lidoderm patch TOP daily for back pain - fall risk protocol - Neuro consulted: Dr. Newman - help appreciated Leukocytosis with left shift - likely 2/2 stress response - WBC 12.2 on admission - afebrile and hemodynamically stable - f/u UA - reflex urine c/s if positive - CXR (03/27): no active pulmonary disease - will hold off on blood and urine Cx for now - monitor with AM labs Hypertension - f/u lipid panel - home Valsartan 80mg po daily - home Amlodipine 5mg po daily - staggered so Valsartan in AM and Amlodipine in PM - monitor vitals Hyperlipidemia - home ASA 81mg po daily - home Simvastatin 20mg -> Crestor 5mg po HS - home Fenofibrate 145mg po daily Diabetes Mellitus - f/u Hgb A1c - hold home Metformin 500mg po daily d/t CTA IV contrast. Will restart on Sat evening, 48hrs after CTA. - Accuchecks ACHS - mod ISS - hypoglycemia protocol Osteoporosis - held home Fosamax 1 tab po q7d d/t unknown day of the week - Calcium/VitD 500/200 supplement 1 tab po tid PPx - DVT: Heparin 5000u sc q8, SCDs - GI: not indicated - Diet: HHD 2g Na, low carb - PT/OT consulted Syncope: Check ECHO and Carotid duplex Past Patient History - Infectious Disease Hx of Infectious Diseases: None - Past Medical History & Family History Past Medical History?: Yes - Past Social History Smoking Status: Never Smoked Alcohol: None Drugs: Denies - CARDIAC Hx Cardiac Disorders: Yes Hx Hypercholesterolemia: Yes Hx Hypertension: Yes - PULMONARY Hx Respiratory Disorders: No - NEUROLOGICAL Hx Neurological Disorder: Yes Hx Vertigo: Yes - HEENT Hx HEENT Problems: Yes Hx Cataracts: Yes (LEFT EYE) - RENAL Hx Chronic Kidney Disease: Yes Hx Kidney Stones: Yes (RIGHT; REMOVED 2012) - ENDOCRINE/METABOLIC Hx Endocrine Disorders: Yes Hx Diabetes Mellitus Type 2: Yes - HEMATOLOGICAL/ONCOLOGICAL Hx Blood Disorders: No - INTEGUMENTARY Hx Dermatological Problems: No - MUSCULOSKELETAL/RHEUMATOLOGICAL Hx Musculoskeletal Disorders: Yes Hx Arthritis: Yes Hx Falls: Yes - GASTROINTESTINAL Hx Gastrointestinal Disorders: No - GENITOURINARY/GYNECOLOGICAL Hx Genitourinary Disorders: No - PSYCHIATRIC Hx Psychophysiologic Disorder: No Hx Substance Use: No - SURGICAL HISTORY Hx Surgeries: Yes Hx Breast Biopsy: Yes (LEFT BREAST) Hx Mastectomy: Yes - ANESTHESIA Hx Anesthesia: Yes Hx Anesthesia Reactions: No Hx Malignant Hyperthermia: No Has any member of the family had a problem w/ anesthesia?: No Meds Allergies/Adverse Reactions: Allergies Allergy/AdvReac Type Severity Reaction Status Date / Time No Known Allergies Allergy Verified 05/03/14 08:21 - Medications Medications: Current Medications Amlodipine Besylate (Norvasc) 5 mg PO HS [facility] Last Admin: 03/27/18 21:45 Dose: 5 mg Aspirin (Ecotrin) 81 mg PO DAILY [facility] Calcium/Vitamin D (Oyster Shell Calcium/Vitamin D 500 Mg-200 Iu) 1 tab PO TID S Last Admin: 03/27/18 17:57 Dose: 1 tab Dextrose (Dextrose 50% Inj) 0 ml IV STAT PRN; Protocol PRN Reason: Hypoglycemia Protocol Dextrose (Glutose 15) 0 gm PO ONCE PRN; Protocol PRN Reason: Hypoglycemia Protocol Fenofibrate (Tricor) 145 mg PO DAILY [facility] Glucagon (Glucagen Diagnostic Kit) 0 mg IM STAT PRN; Protocol PRN Reason: Hypoglycemia Protocol Heparin Sodium (Porcine) (Heparin) 5,000 units SC Q8 [facility] Last Admin: 03/27/18 21:45 Dose: 5,000 units Dextrose (Dextrose 5% In Water 1000 Ml) 1,000 mls @ 0 mls/hr IV .Q0M PRN; Protocol PRN Reason: Hypoglycemia Protocol Insulin Aspart (Novolog) 0 unit SC ACHS [facility]; Protocol Lidocaine (Lidoderm) 1 ea TD DAILY [facility] Losartan Potassium (Cozaar) 50 mg PO DAILY [facility] Rosuvastatin Calcium (Crestor) 5 mg PO HS [facility] Last Admin: 03/27/18 21:45 Dose: 5 mg Results - Vital Signs Recent Vital Signs: Last Vital Signs Temp 98 F 03/27/18 16:31 Pulse 92 H 03/27/18 18:00 Resp 20 03/27/18 16:31 BP 146/68 03/27/18 16:31 Pulse Ox 98 03/27/18 16:31 - Labs Result Diagrams: 03/27/18 11:00 03/27/18 11:00 Labs: Laboratory Results - last 24 hr 03/27/18 03/27/18 03/27/18 11:00 11:00 11:00 WBC 12.2 H RBC 3.75 L Hgb 11.7 Hct 34.7 MCV 92.6 MCH 31.1 H MCHC 33.6 RDW 13.2 Plt Count 373 MPV 8.1 Neut % (Auto) 83.5 H Lymph % (Auto) 9.0 L O'Brien % (Auto) 6.7 Eos % (Auto) 0.3 Baso % (Auto) 0.5 Neut # (Auto) 10.2 H Lymph # (Auto) 1.1 O'Brien # (Auto) 0.8 Eos # (Auto) 0.0 Baso # (Auto) 0.1 Neutrophils % (Manual) 87 H Lymphocytes % (Manual) 8 L Monocytes % (Manual) 4 Basophils % (Manual) 1 Platelet Estimate Normal RBC Morphology Normal D-Dimer, Quantitative 1663 H Sodium 141 Potassium 4.2 Chloride 106 Carbon Dioxide 24 Anion Gap 16 BUN 26 H Creatinine 1.0 Est GFR ( Amer) > 60 Est GFR (Non-Af Amer) 53 POC Glucose (mg/dL) Random Glucose 124 H Calcium 10.1 Total Bilirubin 0.9 AST 81 H D ALT 41 Alkaline Phosphatase 126 D Total Creatine Kinase CK-MB (Mass) Troponin I Total Protein 7.6 Albumin 4.3 Globulin 3.2 Albumin/Globulin Ratio 1.3 Free T4 TSH 3rd Generation Urine Color Urine Clarity Urine pH Ur Specific [place] Urine Protein Urine Glucose (UA) Urine Ketones Urine Blood Urine Nitrate Urine Bilirubin Urine Urobilinogen Ur Leukocyte Esterase Urine WBC (Auto) Urine RBC (Auto) Ur Squamous Epith Cells 03/27/18 03/27/18 03/27/18 11:42 17:48 17:48 WBC RBC Hgb Hct MCV MCH MCHC RDW Plt Count MPV Neut % (Auto) Lymph % (Auto) O'Brien % (Auto) Eos % (Auto) Baso % (Auto) Neut # (Auto) Lymph # (Auto) O'Brien # (Auto) Eos # (Auto) Baso # (Auto) Neutrophils % (Manual) Lymphocytes % (Manual) Monocytes % (Manual) Basophils % (Manual) Platelet Estimate RBC Morphology D-Dimer, Quantitative Sodium Potassium Chloride Carbon Dioxide Anion Gap BUN Creatinine Est GFR ( Amer) Est GFR (Non-Af Amer) POC Glucose (mg/dL) 114 H Random Glucose Calcium Total Bilirubin AST ALT Alkaline Phosphatase Total Creatine Kinase 29 L CK-MB (Mass) 0.44 Troponin I < 0.0120 Total Protein Albumin Globulin Albumin/Globulin Ratio Free T4 1.59 TSH 3rd Generation 1.41 Urine Color Urine Clarity Urine pH Ur Specific [place] Urine Protein Urine Glucose (UA) Urine Ketones Urine Blood Urine Nitrate Urine Bilirubin Urine Urobilinogen Ur Leukocyte Esterase Urine WBC (Auto) Urine RBC (Auto) Ur Squamous Epith Cells 03/27/18 03/27/18 19:12 20:50 WBC RBC Hgb Hct MCV MCH MCHC RDW Plt Count MPV Neut % (Auto) Lymph % (Auto) O'Brien % (Auto) Eos % (Auto) Baso % (Auto) Neut # (Auto) Lymph # (Auto) O'Brien # (Auto) Eos # (Auto) Baso # (Auto) Neutrophils % (Manual) Lymphocytes % (Manual) Monocytes % (Manual) Basophils % (Manual) Platelet Estimate RBC Morphology D-Dimer, Quantitative Sodium Potassium Chloride Carbon Dioxide Anion Gap BUN Creatinine Est GFR ( Amer) Est GFR (Non-Af Amer) POC Glucose (mg/dL) 153 H Random Glucose Calcium Total Bilirubin AST ALT Alkaline Phosphatase Total Creatine Kinase CK-MB (Mass) Troponin I Total Protein Albumin Globulin Albumin/Globulin Ratio Free T4 TSH 3rd Generation Urine Color Yellow Urine Clarity Clear Urine pH 7.0 Ur Specific [place] 1.041 H Urine Protein Negative Urine Glucose (UA) Normal Urine Ketones Negative Urine Blood 1+ H Urine Nitrate Negative Urine Bilirubin Negative Urine Urobilinogen 2.0 H Ur Leukocyte Esterase Neg Urine WBC (Auto) 1 Urine RBC (Auto) 26 H Ur Squamous Epith Cells 1
[2018-03-27] MEDS: (Novolog) Insulin Aspart, Recombinant 100 u/ml 10 ml vial SC SCH (22:26)
[2018-03-27 22:29] LABS: CK-MB 0.39 ng/mL (0.0-3.38)
[2018-03-28] MEDS: (Novolog) Insulin Aspart, Recombinant 100 u/ml 10 ml vial SC SCH ×3 (07:30→12:20)
[2018-03-28 08:00] LABS: BASO # 0.1 K/uL (0.0-0.2); EOS # 0.2 K/uL (0.0-0.7); EOS % 2.4 % (0.0-4.0); LYMPH % 26.8 % (20.0-40.0); MEAN CELL VOLUME 92.3 fL (81.0-99.0); MEAN CORPUSCULAR HEMOGLOBIN 31.6 pg (27.0-31.0); MEAN CORPUSCULAR HGB CONC 34.2 g/dL (33.0-37.0); MONO # 0.7 K/uL (0.0-0.8); MONO % 9.5 % (0.0-10.0); NEUT # 4.5 K/uL (1.8-7.0); NEUT % 60.3 % (50.0-75.0); RBC 3.49 Mil/uL (3.80-5.20); RED CELL DISTRIBUTION WIDTH 13.2 % (11.5-14.5); WHITE BLOOD COUNT 7.5 K/uL (4.8-10.8)
[2018-03-28] MEDS ORDERED: Lidocaine 5% Patch TD SCH (10:00)
--- NOTE | 2018-03-28 10:23 | RAD ---
Date of service: 03/28/2018 PROCEDURE: Radiographs of the right elbow. HISTORY: s/p fall, bruise COMPARISON: No prior. FINDINGS: BONES: No acute fracture. JOINTS: Mild joint space narrowing. SOFT TISSUES: Normal. JOINT EFFUSION: None. OTHER FINDINGS: Triceps tendon enthesophyte. IMPRESSION: No demonstrated fracture or dislocation. Mild degenerative changes.
[2018-03-28] MEDS: Calcium-Vit D 500 mg-200 Units Tab UD PO SCH ×2 (10:37→13:01)
--- NOTE | 2018-03-28 12:49 | CP.PCM.DIS ---
<BellStefanie Prateek - Last Filed: 03/28/18 15:57> Provider - Provider Date of Admission: 03/27/18 14:58 Attending physician: Travis Meza MD Time Spent in preparation of Discharge (in minutes): 45 Diagnosis - Discharge Diagnosis (1) Syncope Status: Acute Priority: Medium Hospital Course - Lab Results Lab Results: Most Recent Lab Values WBC 7.5 K/uL (4.8-10.8) 03/28/18 07:35 RBC 3.49 Mil/uL (3.80-5.20) L 03/28/18 07:35 Hgb 11.0 g/dL (11.0-16.0) 03/28/18 07:35 Hct 32.2 % (34.0-47.0) L 03/28/18 07:35 MCV 92.3 fL (81.0-99.0) 03/28/18 07:35 MCH 31.6 pg (27.0-31.0) H 03/28/18 07:35 MCHC 34.2 g/dL (33.0-37.0) 03/28/18 07:35 RDW 13.2 % (11.5-14.5) 03/28/18 07:35 Plt Count 359 K/uL (130-400) 03/28/18 07:35 MPV 8.0 fL (7.2-11.7) 03/28/18 07:35 Neut % (Auto) 60.3 % (50.0-75.0) 03/28/18 07:35 Lymph % (Auto) 26.8 % (20.0-40.0) 03/28/18 07:35 Bullock % (Auto) 9.5 % (0.0-10.0) 03/28/18 07:35 Eos % (Auto) 2.4 % (0.0-4.0) 03/28/18 07:35 Baso % (Auto) 1.0 % (0.0-2.0) 03/28/18 07:35 Neut # (Auto) 4.5 K/uL (1.8-7.0) 03/28/18 07:35 Lymph # (Auto) 2.0 K/uL (1.0-4.3) 03/28/18 07:35 Bullock # (Auto) 0.7 K/uL (0.0-0.8) 03/28/18 07:35 Eos # (Auto) 0.2 K/uL (0.0-0.7) 03/28/18 07:35 Baso # (Auto) 0.1 K/uL (0.0-0.2) 03/28/18 07:35 Neutrophils % (Manual) 87 % (50-75) H 03/27/18 11:00 Lymphocytes % (Manual) 8 % (20-40) L 03/27/18 11:00 Monocytes % (Manual) 4 % (0-10) 03/27/18 11:00 Basophils % (Manual) 1 % (0-2) 03/27/18 11:00 Platelet Estimate Normal (NORMAL) 03/27/18 11:00 RBC Morphology Normal 03/27/18 11:00 D-Dimer, Quantitative 1663 ng/mlDDU (0-243) H 03/27/18 11:00 Sodium 141 mmol/L (132-148) 03/27/18 11:00 Potassium 4.2 mmol/L (3.6-5.2) 03/27/18 11:00 Chloride 106 mmol/L (98-107) 03/27/18 11:00 Carbon Dioxide 24 mmol/L (22-30) 03/27/18 11:00 Anion Gap 16 (10-20) 03/27/18 11:00 BUN 26 mg/dL (7-17) H 03/27/18 11:00 Creatinine 1.0 mg/dL (0.7-1.2) 03/27/18 11:00 Est GFR ( Amer) > 60 03/27/18 11:00 Est GFR (Non-Af Amer) 53 03/27/18 11:00 POC Glucose (mg/dL) 166 mg/dL (65-110) H 03/28/18 11:30 Random Glucose 124 mg/dL (65-105) H 03/27/18 11:00 Hemoglobin A1c 4.7 % (4.2-6.5) 03/28/18 07:35 Calcium 10.1 mg/dl (8.6-10.4) 03/27/18 11:00 Total Bilirubin 0.9 mg/dL (0.2-1.3) 03/27/18 11:00 AST 81 U/L (14-36) H D 03/27/18 11:00 ALT 41 U/L (9-52) 03/27/18 11:00 Alkaline Phosphatase 126 U/L (38-126) D 03/27/18 11:00 Total Creatine Kinase 30 U/L (30-135) 03/27/18 22:00 CK-MB (Mass) 0.39 ng/mL (0.0-3.38) 03/27/18 22:00 Troponin I < 0.0120 ng/mL (0.00-0.120) 03/27/18 22:00 Total Protein 7.6 g/dL (6.3-8.3) 03/27/18 11:00 Albumin 4.3 g/dL (3.5-5.0) 03/27/18 11:00 Globulin 3.2 gm/dL (2.2-3.9) 03/27/18 11:00 Albumin/Globulin Ratio 1.3 (1.0-2.1) 03/27/18 11:00 Free T4 1.59 ng/dL (0.78-2.19) 03/27/18 17:48 TSH 3rd Generation 1.41 mIU/L (0.46-4.68) 03/27/18 17:48 Urine Color Yellow (YELLOW) 03/27/18 19:12 Urine Clarity Clear (Clear) 03/27/18 19:12 Urine pH 7.0 (5.0-8.0) 03/27/18 19:12 Ur Specific [place] 1.041 (1.003-1.030) H 03/27/18 19:12 Urine Protein Negative mg/dL (NEGATIVE) 03/27/18 19:12 Urine Glucose (UA) Normal mg/dL (Normal) 03/27/18 19:12 Urine Ketones Negative mg/dL (NEGATIVE) 03/27/18 19:12 Urine Blood 1+ (NEGATIVE) H 03/27/18 19:12 Urine Nitrate Negative (NEGATIVE) 03/27/18 19:12 Urine Bilirubin Negative (NEGATIVE) 03/27/18 19:12 Urine Urobilinogen 2.0 mg/dL (0.2-1.0) H 03/27/18 19:12 Ur Leukocyte Esterase Neg Lui/uL (Negative) 03/27/18 19:12 Urine WBC (Auto) 1 /hpf (0-5) 03/27/18 19:12 Urine RBC (Auto) 26 /hpf (0-3) H 03/27/18 19:12 Ur Squamous Epith Cells 1 /hpf (0-5) 03/27/18 19:12 - Hospital Course Hospital Course: Ms. Arreola is a 82 year old female PMH hypertension, diabetes, hyperlipidemia, osteoporosis comes to [facility] after two falls in the last two weeks at the urging of her PMD, Dr. Merchant. On 03/11, she tripped while walking on the sidewalk. She fell onto her right side, landing on her elbow with no LOC and did not hit her head. She already had an appointment with Dr. Merchant, and was released with advice to take it easy. On 03/20 around 10am, she started feeling dizzy, started to sweat, and experienced a sudden hot flash while in her bathroom. She attempted to reach the window to open it, but lost consciousness. She woke up an undetermined amount of time later in a pool of NBNB vomit consisting of her breakfast: coffee, eggs, toast. She immediately began cleaning up and went about her day. Denied chest pain, shortness of breath, headache, nausea, joint swelling at that time. Yesterday, 03/26, Dr. Merchant called the patient to follow up with the first fall. The patient explained the events and was encouraged to come to the ED. Patient refused. However, this morning, she once again experienced dizziness and began to be flushed. She sat down, which allowed her to not fall nor lose consciousness, and came to the ED. Given IV Toradol and a lidoderm patch pain in the ED. XRay of the right hip and right elbow were negative for fracture. Syncope work up CXR and EKG were normal. Labs showed elevated D-dimer. Chest CTA was negative for PE. Head CT showed non- specific white matter changes. Carotid Dopplers were negative. Per neuro most likely diagnosis is vasovagal syncope but recommended CTA of the head and neck to rule out vertibrobasilar insufficiency. Cardio Tilt Table testing negative. ECHO was done. Patient was cleared by both neuro and cardio for discharge. Primary Diagnosis: Syncope Patient is clear for discharge per Dr. Zay Meza. She can resume her home medications as prescribed with the exception of Metformin. Please hold off on the Metformin until Sun, 03/30, due to her IV contrast when getting your CTAs. We are prescribing a calcium/VitD supplement with each meal to aid your osteoporosis medication. Please follow up with your PMD, Dr. Merchant, within the next week as scheduled. This is especially important to confirm your hypertension medications and refill the calcium/VitD supplements. Please also keep your appointment with Dr. Mendoza, the dial screw assembler, as scheduled to follow up with your ECHO results. If you feel faint or dizzy, please sit down immediately and return to the ED when you feel able to call someone (friend or EMS) to bring you. Plan was discussed with patient who understood and agreed. This is a summary of the hospital course. Please refer to the EMR for more details. - Date & Time of H&P Date of H&P: 03/28/18 Time of H&P: 08:45 Discharge Exam - Head Exam Head Exam: ATRAUMATIC, NORMAL INSPECTION, NORMOCEPHALIC - Eye Exam Eye Exam: EOMI, PERRL - ENT Exam ENT Exam: Mucous Membranes Moist - Respiratory Exam Respiratory Exam: Clear to PA & Lateral, NORMAL BREATHING PATTERN, UNREMARKABLE. absent: Accessory Muscle Use, Decreased Breath Sounds, Rales, Rhonchi, Wheezes - Cardiovascular Exam Cardiovascular Exam: REGULAR RHYTHM, +S1, +S2. absent: Gallop, Rubs, Systolic Murmur - GI/Abdominal Exam GI & Abdominal Exam: Normal Bowel Sounds, Soft. absent: Distended, Firm, Guarding, Tenderness - Extremities Exam Extremities exam: pedal pulses present Additional comments: Lateral aspect of R elbow: 2in x 1.5 in well healing yellow/green bruise appropriate with stated timeline Limited Active ROM in F/E/Abduction of R hip. Full ROM of L hip. Patient unable to relax to test Passive ROM Muscle strength: 4/5 throughout peripheral pulses palpable bilaterally (radial, DP, PT) IV access in L forearm to be removed prior to discharge - Back Exam Back exam: muscle spasm, tenderness. absent: paraspinal tenderness, vertebral tenderness Additional comments: TTP above sacrum where patient fell. Lidoderm patch in place - Neurological Exam Neurological exam: Abnormal Gait, Alert, CN II-XII Intact, Oriented x3, Reflexes Normal Additional comments: Able to weight bear, limp preferring weight bearing on L side - Psychiatric Exam Psychiatric exam: Normal Affect, Normal Mood - Skin Skin Exam: Dry, Intact, Normal Color, Warm Additional comments: except noted above Discharge Plan - Discharge Medications Prescriptions: amLODIPine [Norvasc] 5 mg PO HS #30 tab Calcium/Vitamin D [Oyster Shell Calcium/Vitamin D 500 mg-200 IU] 1 tab PO TID #60 tab - Follow Up Plan Condition: STABLE Disposition: HOME/ ROUTINE Instructions: Hip Pain (DC), Amlodipine, Syncope (DC) Additional Instructions: Patient is clear for discharge per Dr. Zay Meza. She can resume her home medications as prescribed with the exception of Metformin. Please hold off on the Metformin until Sun, 03/30, due to her IV contrast when getting your CTAs. We are prescribing a calcium/VitD supplement with each meal to aid your osteoporosis medication. Please follow up with your PMD, Dr. Merchant, within the next week as scheduled. This is especially important to confirm your hypertension medications and refill the calcium/VitD supplements. Please also keep your appointment with Dr. Mendoza, the dial screw assembler, as scheduled to follow up on your ECHO results. If you feel faint or dizzy, please sit down immediately and return to the ED when you feel able to call someone (friend or EMS) to bring you. Plan was discussed with patient who understood and agreed. Referrals: Christophe Mendoza MD [Staff Provider] - Taylor Merchant MD [Staff Provider] - <Travis Meza - Last Filed: 03/30/18 20:34> Provider - Provider Date of Admission: 03/27/18 14:58 Attending physician: Travis Meza MD Time Spent in preparation of Discharge (in minutes): 40 Hospital Course - Lab Results Lab Results: Most Recent Lab Values WBC 7.5 K/uL (4.8-10.8) 03/28/18 07:35 RBC 3.49 Mil/uL (3.80-5.20) L 03/28/18 07:35 Hgb 11.0 g/dL (11.0-16.0) 03/28/18 07:35 Hct 32.2 % (34.0-47.0) L 03/28/18 07:35 MCV 92.3 fL (81.0-99.0) 03/28/18 07:35 MCH 31.6 pg (27.0-31.0) H 03/28/18 07:35 MCHC 34.2 g/dL (33.0-37.0) 03/28/18 07:35 RDW 13.2 % (11.5-14.5) 03/28/18 07:35 Plt Count 359 K/uL (130-400) 03/28/18 07:35 MPV 8.0 fL (7.2-11.7) 03/28/18 07:35 Neut % (Auto) 60.3 % (50.0-75.0) 03/28/18 07:35 Lymph % (Auto) 26.8 % (20.0-40.0) 03/28/18 07:35 Bullock % (Auto) 9.5 % (0.0-10.0) 03/28/18 07:35 Eos % (Auto) 2.4 % (0.0-4.0) 03/28/18 07:35 Baso % (Auto) 1.0 % (0.0-2.0) 03/28/18 07:35 Neut # (Auto) 4.5 K/uL (1.8-7.0) 03/28/18 07:35 Lymph # (Auto) 2.0 K/uL (1.0-4.3) 03/28/18 07:35 Bullock # (Auto) 0.7 K/uL (0.0-0.8) 03/28/18 07:35 Eos # (Auto) 0.2 K/uL (0.0-0.7) 03/28/18 07:35 Baso # (Auto) 0.1 K/uL (0.0-0.2) 03/28/18 07:35 Neutrophils % (Manual) 87 % (50-75) H 03/27/18 11:00 Lymphocytes % (Manual) 8 % (20-40) L 03/27/18 11:00 Monocytes % (Manual) 4 % (0-10) 03/27/18 11:00 Basophils % (Manual) 1 % (0-2) 03/27/18 11:00 Platelet Estimate Normal (NORMAL) 03/27/18 11:00 RBC Morphology Normal 03/27/18 11:00 D-Dimer, Quantitative 1663 ng/mlDDU (0-243) H 03/27/18 11:00 Sodium 141 mmol/L (132-148) 03/27/18 11:00 Potassium 4.2 mmol/L (3.6-5.2) 03/27/18 11:00 Chloride 106 mmol/L (98-107) 03/27/18 11:00 Carbon Dioxide 24 mmol/L (22-30) 03/27/18 11:00 Anion Gap 16 (10-20) 03/27/18 11:00 BUN 26 mg/dL (7-17) H 03/27/18 11:00 Creatinine 1.0 mg/dL (0.7-1.2) 03/27/18 11:00 Est GFR ( Amer) > 60 03/27/18 11:00 Est GFR (Non-Af Amer) 53 03/27/18 11:00 POC Glucose (mg/dL) 116 mg/dL (65-110) H 03/28/18 16:11 Random Glucose 124 mg/dL (65-105) H 03/27/18 11:00 Hemoglobin A1c 4.7 % (4.2-6.5) 03/28/18 07:35 Calcium 10.1 mg/dl (8.6-10.4) 03/27/18 11:00 Total Bilirubin 0.9 mg/dL (0.2-1.3) 03/27/18 11:00 AST 81 U/L (14-36) H D 03/27/18 11:00 ALT 41 U/L (9-52) 03/27/18 11:00 Alkaline Phosphatase 126 U/L (38-126) D 03/27/18 11:00 Total Creatine Kinase 30 U/L (30-135) 03/27/18 22:00 CK-MB (Mass) 0.39 ng/mL (0.0-3.38) 03/27/18 22:00 Troponin I < 0.0120 ng/mL (0.00-0.120) 03/27/18 22:00 Total Protein 7.6 g/dL (6.3-8.3) 03/27/18 11:00 Albumin 4.3 g/dL (3.5-5.0) 03/27/18 11:00 Globulin 3.2 gm/dL (2.2-3.9) 03/27/18 11:00 Albumin/Globulin Ratio 1.3 (1.0-2.1) 03/27/18 11:00 Free T4 1.59 ng/dL (0.78-2.19) 03/27/18 17:48 TSH 3rd Generation 1.41 mIU/L (0.46-4.68) 03/27/18 17:48 Urine Color Yellow (YELLOW) 03/27/18 19:12 Urine Clarity Clear (Clear) 03/27/18 19:12 Urine pH 7.0 (5.0-8.0) 03/27/18 19:12 Ur Specific [place] 1.041 (1.003-1.030) H 03/27/18 19:12 Urine Protein Negative mg/dL (NEGATIVE) 03/27/18 19:12 Urine Glucose (UA) Normal mg/dL (Normal) 03/27/18 19:12 Urine Ketones Negative mg/dL (NEGATIVE) 03/27/18 19:12 Urine Blood 1+ (NEGATIVE) H 03/27/18 19:12 Urine Nitrate Negative (NEGATIVE) 03/27/18 19:12 Urine Bilirubin Negative (NEGATIVE) 03/27/18 19:12 Urine Urobilinogen 2.0 mg/dL (0.2-1.0) H 03/27/18 19:12 Ur Leukocyte Esterase Neg Lui/uL (Negative) 03/27/18 19:12 Urine WBC (Auto) 1 /hpf (0-5) 03/27/18 19:12 Urine RBC (Auto) 26 /hpf (0-3) H 03/27/18 19:12 Ur Squamous Epith Cells 1 /hpf (0-5) 03/27/18 19:12 RPR Nonreactive (NONREACTIVE) 03/28/18 07:35 Attending/Attestation - Attestation I have personally seen and examined this patient.: Yes I have fully participated in the care of the patient.: Yes I have reviewed all pertinent clinical information, including history, physical exam and plan: Yes Notes (Text): 03/30/18 20:34 This is a late entry. Care of this patient was gone over in detail with the resident. Travis Meza D.O.
[2018-03-28] MEDS ORDERED: Iodixanol 320 MG/ML 100 ML BOTTLE IV ONE (12:57)
--- NOTE | 2018-03-28 14:31 | CT ---
PROCEDURE: CTA HEAD AND NECK WITH CONTRAST HISTORY: Syncope COMPARISON: None available. TECHNIQUE: Initial noncontrast head CT was performed. Subsequently, CT angiogram of the head and neck were performed after the intravenous administration of 80 mL of Omnipaque 350. Contiguous 1.5mm thick images were obtained in the axial plane of the neck. 2-D coronal and sagittal MPR images were obtained. Imaging postprocessing was performed with 3-D images also obtained. A delayed contrast head CT was also obtained. This CT exam was performed using one or more of the following dose reduction techniques: Automated exposure control, adjustment of the mA and/or kV according to patient size, and/or use of iterative reconstruction technique. Contrast dose: 100 mL Visipaque 320 Radiation dose: Total exam DLP = 476.49 mGy-cm. FINDINGS: HEAD: Right: The intracranial internal carotid artery, and anterior and middle cerebral arteries are widely patent. Left: The intracranial internal carotid artery, and anterior and middle cerebral arteries are widely patent. Posterior circulation: The visualized intracranial vertebral arteries, basilar artery and posterior cerebral arteries are widely patent. There is origin of the right posterior cerebral artery, an anatomic variant with There is no endoluminal filling defect to suggest thrombus. There is no intracranial saccular aneurysm. NECK: There is a three vessel aortic arch. There is no stenosis at the origins of the great vessels at the level of the aortic arch. There are mild atherosclerotic calcification in both carotid bulbs. Right Carotid: On the right, the common carotid, internal carotid and external carotid arteries are widely patent. There is no hemodynamically significant stenosis in the internal carotid artery by NASCET criteria. Left Carotid: On the left, the common carotid, internal carotid and external carotid arteries are widely patent. There is no hemodynamically significant stenosis in the internal carotid artery by NASCET criteria. The vertebral arteries are widely patent. The left vertebral artery is hypoplastic, an anatomic variant. The visualized soft tissues of the neck are normal. The visualized brain and cervical spine are within normal limits. The lung apices are clear. IMPRESSION: 1. No evidence of endoluminal thrombus,occlusion or definite significant stenosis in the intracranial arteries. 2. No evidence of hemodynamically significant stenosis in the internal carotid arteries. 3. Patent bilateral vertebral arteries.
[2018-03-28 15:55] VITALS: BP 141/69; PULSE 80; TEMP 98; O2SAT 97
--- NOTE | 2018-03-28 20:55 | CP.PCM.PN ---
Subjective - Date & Time of Evaluation Date of Evaluation: 03/28/18 Time of Evaluation: 09:30 - Subjective Subjective: Patient seen and evaluated Denies chest pain and dyspnea PMH: HTN, DM, HLD, osteoporosis Med: ASA, Fenofibrate, Simvastatin, Valsartan, Amlodipine, Metformin, Alendronate All: NKDA FamHx: Father - DM, both sides: HTN. Denies AL, stroke, CA SocHx: Denies ever tobacco, alcohol, illicit drugs SurgHx: 1996 - R total mastectomy, 2013 - colonoscopy, 2017 - bilateral cataract removal Insurance Executive: menopause at 49, denies sexual activity Proxy: refuses. Son lives in [place] - Edward Stauffer DNR/DNI Present on Admission - Present on Admission Any Indicators Present on Admission: No Review of Systems - Constitutional Constitutional: Excessive Sweating, Fatigue, Weight Loss, Weakness. absent: Chills, Fever, Frequent Falls, Headache, Night Sweats - EENT Eyes: absent: Blurred Vision, Change in Vision, Diplopia Ears: absent: Decreased Hearing, Tinnitus Nose/Mouth/Throat: absent: Dysphagia, Odynophagia - Cardiovascular Cardiovascular: Syncope. absent: Chest Pain, Diaphoresis, Dyspnea, Dyspnea on Exertion, Irregular Heart Rhythm, Orthopnea - Respiratory Respiratory: absent: Cough, Dyspnea, Hemoptysis, Dyspnea on Exertion - Gastrointestinal Gastrointestinal: Vomiting. absent: Constipation, Diarrhea, Dysphagia, Nausea - Genitourinary Genitourinary: Urinary Frequency. absent: Difficulty Urinating, Urinary Hesitance, Urinary Urgency, Freq UTI - Reproductive: Female Reproductive:Female: Menopausal - Musculoskeletal Musculoskeletal: Abnormal Gait, Back Pain, Limited Range of Motion, Muscle Weakness. absent: Deformity, Joint Swelling, Numbness, Tingling - Integumentary Integumentary: Swelling. absent: Rash, Skin Ulcer, Sores - Neurological Neurological: Abnormal Gait, Dizziness, Headaches, Syncope, Weakness. absent: Abnormal Hearing, Burning Sensations, Confusion, Convulsions, Focal Weakness, Tingling - Psychiatric Psychiatric: absent: Confusion, Hallucinations - Endocrine Endocrine: Excessive Sweating, Fatigue, Flushing, Polyuria. absent: Heat Intolorance - Hematologic/Lymphatic Hematologic: absent: Easy Bleeding, Easy Bruising Meds Allergies/Adverse Reactions: Allergies Allergy/AdvReac Type Severity Reaction Status Date / Time No Known Allergies Allergy Verified 05/03/14 08:21 Physical Exam - Constitutional Appears: Well, No Acute Distress - Head Exam Head Exam: ATRAUMATIC, NORMOCEPHALIC - Eye Exam Eye Exam: EOMI, PERRL - ENT Exam ENT Exam: Mucous Membranes Moist - Neck Exam Neck exam: Positive for: Normal Inspection. Negative for: Lymphadenopathy, Thyromegaly - Respiratory Exam Respiratory Exam: Clear to Auscultation Bilateral, NORMAL BREATHING PATTERN. absent: Accessory Muscle Use, Rales, Rhonchi, Wheezes - Cardiovascular Exam Cardiovascular Exam: REGULAR RHYTHM, +S1, +S2. absent: Gallop, Rubs, Systolic Murmur - GI/Abdominal Exam GI & Abdominal Exam: Normal Bowel Sounds, Soft. absent: Distended, Firm, Guarding, Tenderness - Extremities Exam Extremities exam: Positive for: normal capillary refill, pedal pulses present. Negative for: joint swelling, pedal edema Additional comments: Lateral aspect of R elbow: 2in x 1.5 in well healing yellow/green bruise appropriate with stated timeline Limited Active ROM in F/E/Abduction of R hip. Full ROM of L hip. Patient unable to relax to test Passive ROM Muscle strength: 4/5 throughout peripheral pulses palpable bilaterally (radial, DP, PT) IV access in L forearm - Back Exam Back exam: muscle spasm, tenderness. absent: CVA tenderness (L), CVA tenderness (R), paraspinal tenderness, vertebral tenderness Additional comments: TTP above sacrum where patient fell. Lidoderm patch in place - Neurological Exam Neurological exam: Abnormal Gait, Alert, CN II-XII Intact, Oriented x3, Reflexes Normal Additional comments: Able to weight bear, limp preferring weight bearing on L side - Psychiatric Exam Psychiatric exam: Normal Affect, Normal Mood - Skin Skin Exam: Dry, Intact, Normal Color, Warm Additional comments: except noted above - EKG Data EKG Interpreted by: ER Physician EKG shows normal: Sinus rhythm Rate: Normal Assessment & Plan - Assessment and Plan (Free Text) Assessment: Ms. Arreola is a 82yo female PMH HTN, DM, HLD, osteoporosis admitted for syncope workup s/p 2 recent falls. Plan: Syncope with two recent falls - CXR (03/27): no interval pathology noted - XR Hip/Pelvis (03/27): no fracture or dislocation - CT Head (03/27): Nonspecific white matter changes. No acute findings. - d-dimer 1663 - CTA (03/27): no large central or segmental PE identified - f/u TSH, free T4 - f/u total CK, CK-MM, CK-MB - f/u VitB12, folate, RPR (with reflex FTA-ABS) - f/u ROMIs and EKGs @ 4:30pm, 10pm, 4am - f/u ECHO - f/u carotid Doppler - f/u XR R elbow - Lidoderm patch TOP daily for back pain - fall risk protocol - Neuro consulted: Dr. Newman - help appreciated Leukocytosis with left shift - likely 2/2 stress response - WBC 12.2 on admission - afebrile and hemodynamically stable - f/u UA - reflex urine c/s if positive - CXR (03/27): no active pulmonary disease - will hold off on blood and urine Cx for now - monitor with AM labs Hypertension - f/u lipid panel - home Valsartan 80mg po daily - home Amlodipine 5mg po daily - staggered so Valsartan in AM and Amlodipine in PM - monitor vitals Hyperlipidemia - home ASA 81mg po daily - home Simvastatin 20mg -> Crestor 5mg po HS - home Fenofibrate 145mg po daily Diabetes Mellitus - f/u Hgb A1c - hold home Metformin 500mg po daily d/t CTA IV contrast. Will restart on Sat evening, 48hrs after CTA. - Accuchecks ACHS - mod ISS - hypoglycemia protocol Osteoporosis - held home Fosamax 1 tab po q7d d/t unknown day of the week - Calcium/VitD 500/200 supplement 1 tab po tid PPx - DVT: Heparin 5000u sc q8, SCDs - GI: not indicated - Diet: HHD 2g Na, low carb - PT/OT consulted ECHO: Normal EF, No valvular issues Tilt table test: Normal Objective - Vital Signs/Intake and Output Vital Signs (last 24 hours): Temp Pulse Resp BP Pulse Ox 98.0 F 80 20 141/69 97 03/28/18 15:00 03/28/18 15:00 03/28/18 15:00 03/28/18 15:00 03/28/18 15:00 - Labs Labs: 03/28/18 07:35 03/27/18 11:00
--- NOTE | 2018-03-28 21:23 | CARD ---
APPROVED REPORT Date of service: 03/27/2018 EKG Measurement Heart [id number] OR [id number] <Conclusion> Normal sinus rhythm Normal ECG
--- NOTE | 2018-03-28 21:23 | CARD ---
APPROVED REPORT Date of service: 03/27/2018 EKG Measurement Heart [id number] OR [id number] [id number] <Conclusion> Normal sinus rhythm Normal ECG
--- NOTE | 2018-03-29 12:28 | VASCLAB ---
DATE: 03/28/2018 PROCEDURE: Tilt table test. Female, . INDICATION: Syncope. The patient was brought to the general labor and tilt table test was performed at 30 degrees for 5 minutes and 60 degrees for 20 minutes. Heart rate and blood pressure response were monitored. There was a 12 mmHg gradual decline in blood pressure and 16 beats per minute increase in heart rate noted during the test. The patient was asymptomatic throughout the test. IMPRESSION: Appropriate blood pressure and heart rate response to tilt table test. The patient was asymptomatic throughout the test. Tima Holder MD
--- NOTE | 2018-03-29 19:34 | CARD ---
APPROVED REPORT Date of service: 03/28/2018 EXAM: Two-dimensional and M-mode echocardiogram with Doppler and color Doppler. Other Information Quality : GoodRhythm : INDICATION Syncope RISK FACTORS Hypertension Hyperlipidemia Diabetes 2D DIMENSIONS IVSd1.0 (0.7-1.1cm)LVDd4.3 (3.9-5.9cm) PWd0.7 (0.7-1.1cm)LA Bxounl52 (18-58mL) LVDs2.2 (2.5-4.0cm)FS (%) 48.4 % LVEF (%)80.1 (>50%)LVEF (Desai's)72.45 % IVC0.00 cm M-Mode DIMENSIONS RVDd1.82 (2.1-3.2cm)Left Atrium (MM)2.53 (2.5-4.0cm) IVSd1.09 (0.7-1.1cm)Aortic Root2.69 (2.2-3.7cm) LVDd3.83 (4.0-5.6cm)Aortic Cusp Exc.1.77 (1.5-2.0cm) PWd1.25 (0.7-1.1cm)FS (%) 29 % LVDs2.70 (2.0-3.8cm)LVEF (%)57 (>50%) Mitral Valve MV E Tykfhfut99.3cm/sMV A Kmdbamqo66.7cm/sE/A ratio0.7 TDI Lateral E' Peak V8.22cm/sMedial E' Peak V5.71cm/sE/Lateral E'8.8 E/Medial E'12.7 Tricuspid Valve TR Peak Bixleczx137tc/sTR Peak Gr.[id number] LEFT VENTRICLE The left ventricle is normal size. There is normal left ventricular wall thickness. Left ventricle systolic function is normal. The Ejection Fraction is 55-60%. There is normal LV segmental wall motion. Tissue Doppler imaging reveals abnormal left ventricular diastolic dysfunction. RIGHT VENTRICLE The right ventricle is normal size. There is normal right ventricular wall thickness. The right ventricular systolic function is normal. ATRIA The left atrium size is normal. The right atrium size is normal. The interatrial septum is intact with no evidence for an atrial septal defect. AORTIC VALVE The aortic valve is normal in structure. No aortic regurgitation is present. There is no aortic valvular stenosis. There is no aortic valvular vegetation. MITRAL VALVE The mitral valve is normal in structure. There is no evidence of mitral valve prolapse. There is no mitral valve stenosis. Mitral regurgitation is mild. TRICUSPID VALVE The tricuspid valve is normal in structure. There is mild tricuspid regurgitation. Right ventricular systolic pressure is estimated at 30-40 mmHg. There is mild pulmonary hypertension. PULMONIC VALVE The pulmonic valve is not well visualized. There is mild pulmonic valvular regurgitation. GREAT VESSELS The aortic root is normal in size. PERICARDIAL EFFUSION There is no significant pericardial effusion. <Conclusion> Left ventricle systolic function is normal. The Ejection Fraction is 55-60%. Diastolic dysfunction. No aortic regurgitation is present. Mitral regurgitation is mild. There is mild tricuspid regurgitation. There is mild pulmonary hypertension. There is mild pulmonic valvular regurgitation.
--- NOTE | 2018-03-31 12:16 | CARD ---
APPROVED REPORT Date of service: 03/28/2018 EKG Measurement Heart [id number] <Conclusion> Normal sinus rhythm Normal ECG
--- NOTE | 2018-04-01 18:25 | VASCLAB ---
Date of service: 03/28/2018 PROCEDURE: Carotid Duplex Exam. HISTORY: syncope COMPARISON: None available. TECHNIQUE: Grayscale and duplex Doppler evaluation of the cervical carotid and vertebral arteries were performed. The common carotid, carotid bifurcations and cervical Internal Carotid Artery (ICA) and proximal External Carotid Artery (ECA) were evaluated. The vertebral arteries were evaluated for gross patency and flow direction. Report prepared by Sukhdeep Brandt, BS, RVT FINDINGS: RIGHT CAROTID ARTERIES: 1. Common Carotid Artery: No significant focal plaque formation of the right common carotid artery. Maximum Peak Systolic velocity: 73 cm/sec: End-diastolic velocity 12 cm/sec. 2. Carotid Bifurcation: Mild heterogeneous plaque formation. Maximum Peak Systolic velocity: 70 cm/sec: End-diastolic velocity 11 cm/sec. 3. Internal Carotid Artery: Plaque description: 3.1. Proximal Segment: Peak systolic velocity 69 cm/sec: End-diastolic velocity 15 cm/sec - % stenosis 0-15% 3.2. Middle Segment: Peak systolic velocity 77 cm/sec: End-diastolic velocity 18 cm/sec - % stenosis 0-15% 3.3. Distal Segment: Peak systolic velocity 115 cm/sec: End-diastolic velocity 17 cm/sec - % stenosis 0-15% 4. External Carotid Artery: No significant focal plaque formation. Peak systolic velocity 89 cm/sec 5. ICA/CCA Ratio: 1.6 LEFT CAROTID ARTERIES: 1. Common Carotid Artery: No significant focal plaque formation of the left common carotid artery. Maximum Peak Systolic velocity: 91 cm/sec: End-diastolic velocity 15 cm/sec. 2. Carotid Bifurcation: Calcific plaque formation. Maximum Peak Systolic velocity: 82 cm/sec: End-diastolic velocity 14 cm/sec. 3. Internal Carotid Artery: Moderate plaque formation of the left proximal ICA which does not results in hemodynamically significant stenosis. Plaque description: Calcific 3.1. Proximal Segment: Peak systolic velocity 111 cm/sec: End-diastolic velocity 20 cm/sec - % stenosis 0-15% 3.2. Middle Segment: Peak systolic velocity 112 cm/sec: End-diastolic velocity 29 cm/sec - % stenosis 0-15% 3.3. Distal Segment: Peak systolic velocity 109 cm/sec: End-diastolic velocity 23 cm/sec - % stenosis 0-15% 4. External Carotid Artery: No significant focal plaque formation. Peak systolic velocity 82 cm/sec 5. ICA/CCA Ratio: 1.2 VERTEBRAL ARTERIES: 1. Right Vertebral Artery: The right vertebral artery flow direction is antegrade. 2. Left Vertebral Artery: The left vertebral artery flow direction is antegrade. OTHER FINDINGS: 1. Right Brachial Blood pressure: 162 mmHg. 2. Left Brachial Blood pressure: 150 mmHg. 3. Multifocal mild calcifications present as described above. IMPRESSION: RIGHT: Duplex scan does not suggest hemodynamically significant stenosis of the right extracranial carotid arteries. LEFT: Duplex scan does not suggest hemodynamically significant stenosis of the left extracranial carotid arteries.
== END 2018-03-28 16:48 | disposition home or self-care (01) ==
LOC: C.ER 09:42 → INTOOBSV 14:58 → C.9E 14:58 → C.5S 15:38
PROVIDERS: ADMIT Family Medicine; ATTEND Family Medicine
PROC: 4A02XFZ Measurement of Cardiac Rhythm, External Approach (ICD-10-PCS; principal; 2018-03-27)
PROC: 4A03XB1 Measurement of Arterial Pressure, Peripheral, External Approach (ICD-10-PCS; 2018-03-27)
DX: R55 Syncope and collapse (principal); D72.829 Elevated white blood cell count, unspecified; E11.22 Type 2 diabetes mellitus with diabetic chronic kidney disease; I12.9 Hypertensive chronic kidney disease with stage 1 through stage 4 chronic kidney disease, or unspecified chronic kidney disease; N18.9 Chronic kidney disease, unspecified; M81.0 Age-related osteoporosis without current pathological fracture; R79.1 Abnormal coagulation profile; E78.5 Hyperlipidemia, unspecified; E78.00 Pure hypercholesterolemia, unspecified; W01.0XXD Fall on same level from slipping, tripping and stumbling without subsequent striking against object, subsequent encounter; Z87.442 Personal history of urinary calculi; Z86.010 Personal history of colon polyps; Z82.49 Family history of ischemic heart disease and other diseases of the circulatory system; Z83.3 Family history of diabetes mellitus; Z79.84 Long term (current) use of oral hypoglycemic drugs

== ENCOUNTER 2018-04-20 11:25 | Emergency (ER) | payer MEDICARE ==
[2018-04-20 11:46] VITALS: O2SAT 95
[2018-04-20 11:53] VITALS: BMI 20.5
--- NOTE | 2018-04-20 12:16 | C.PDOC ---
History Of Present Illness 83 year old female, with PMHx of arthritis, presents to ED for evaluation of left lower back pain radiating down to left leg. Pt states she has had this pain since she fell on 03/22/18. Pt had had Xrays taken twice, both negative and had MRI done 5 days ago which shows degenerative changes Otherwise, denies trauma, fever, weakness, numbness, or any other complaints. Time Seen by Provider: 04/20/18 12:00 Chief Complaint (Nursing): Hip Pain History Per: Patient History/Exam Limitations: no limitations Past Medical History Reviewed: Historical Data, Nursing Documentation, Vital Signs Vital Signs: Last Vital Signs Temp 98.1 F 04/20/18 11:45 Pulse 100 H 04/20/18 11:45 Resp 20 04/20/18 11:45 BP 157/56 H 04/20/18 11:45 Pulse Ox 95 04/20/18 11:45 - Medical History PMH: Arthritis, Colonic Polyps, Diabetes, HTN, Hypercholesterolemia, Kidney Stones (RIGHT; REMOVED 2012), Chronic Kidney Disease - [facility] Procedures COLONOSCOPY (05/03/14) MEASURE OF ARTERIAL PRESSURE, PERIPHERAL, 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 Constitutional: Negative for: Fever, Chills Gastrointestinal: Negative for: Nausea, Vomiting, Abdominal Pain, Diarrhea Genitourinary: Negative for: Dysuria, Frequency, Incontinence, Hematuria, Vag inal Discharge Musculoskeletal: Positive for: Back Pain Neurological: Negative for: Weakness, Numbness Physical Exam - Physical Exam Appears: Non-toxic, No Acute Distress Skin: Normal Color, Warm, Dry Head: Atraumatic, Normacephalic Eye(s): bilateral: Normal Inspection Oral Mucosa: Moist Neck: Normal ROM, Supple Cardiovascular: Rhythm Regular, No Murmur Respiratory: Normal Breath Sounds, No Rales, No Rhonchi, No Wheezing Gastrointestinal/Abdominal: Soft, No Tenderness Back: No CVA Tenderness, No Vertebral Tenderness, Paraspinal Tenderness (left paralumbar), Straight Leg Raising ((+) left leg) Extremity: Normal ROM, No Pedal Edema, No Deformity Neurological/Psych: Oriented x3, Normal Speech ED Course And Treatment O2 Sat by Pulse Oximetry: 95 Pulse Ox Interpretation: Normal Medical Decision Making Medical Decision Making: suspsect sciatica. pmd sent to eval for dvt Plan: Hip Xray Toradol xr us neg. pain improved. ambulatory steady gait no saddle ansethiesa, neuro intact. advise outpt fu. Disposition - Disposition Referrals: [facility] [Outside] [facility] [Outside] Benjy Flor MD [Non-Staff] - Disposition: HOME/ ROUTINE Disposition Time: 12:00 Condition: STABLE Additional Instructions: return to er with worsening symptoms or concerns. Prescriptions: Cyclobenzaprine [Cyclobenzaprine HCl] 10 mg PO DAILY PRN #10 tab PRN Reason: Muscle Spasm Naproxen [Naprosyn] 500 mg PO BID PRN #14 tablet PRN Reason: Pain, Mild (1-3) Instructions: Sciatica, Low Back Pain in Adults Forms: [employer] (Bel[place]ian) - Clinical Impression Clinical Impression: Hip pain, Sciatica, Back pain - Scribe Statement The provider has reviewed the documentation as recorded by the Scribe KP All medical record entries made by the Scribe were at my direction and personally dictated by me. I have reviewed the chart and agree that the record accurately reflects my personal performance of the history, physical exam, medical decision making, and the department course for this patient. I have also personally directed, reviewed, and agree with the discharge instructions and disposition.
--- NOTE | 2018-04-20 15:52 | RAD ---
PROCEDURE: Left Hip X-ray Radiographs. HISTORY: pain COMPARISON: None. FINDINGS: BONES: Normal. No fracture. JOINTS: Normal. SOFT TISSUES: Normal. OTHER FINDINGS: None. IMPRESSION: Normal left hip radiographs.
[2018-04-20 17:01] VITALS: BP 149/60; PULSE 90; RESP 17; TEMP 98
--- NOTE | 2018-04-21 09:39 | VASCLAB ---
Date of service: 04/20/2018 PROCEDURE: Left Lower Extremity Venous Duplex Exam. HISTORY: pain ro dvt PRIORS: None. TECHNIQUE: Left common femoral, femoral, popliteal and posterior tibial, peroneal and great saphenous veins were evaluated. Flow was assessed with color Doppler, compressibility, assessment of phasic flow and augmentation response. Report prepared by Francine Paul S FINDINGS: LEFT: 1. Common Femoral Vein: 1.1. Compressibility - Fully compressible: Thrombus - None : Flow - Phasic: Augmentation -Normal: Reflux - None. 2. Femoral Vein: 2.1. Compressibility - Fully compressible: Thrombus - None: Flow - Phasic: Augmentation -Normal: Reflux - None. 3. Popliteal Vein: 3.1. Compressibility - Fully compressible: Thrombus - None: Flow - Phasic: Augmentation -Normal: Reflux - None. 4. Posterior Tibial Vein: 4.1. Compressibility - Fully compressible: Thrombus - None: Flow - Phasic: Augmentation -Normal: Reflux - None. 5. Peroneal Vein: 5.1. Compressibility - Fully compressible: Thrombus - None: Flow - Phasic: Augmentation -Normal: Reflux - None. 6. Great Saphenous Vein: 6.1. Compressibility - Fully compressible: Thrombus - None: Flow - Phasic: Augmentation - Normal: Reflux - None. OTHER FINDINGS: IMPRESSION: No evidence of deep or superficial vein thrombosis of the left lower extremity with excellent venous flow. Normal valve function noted of the left side. Normal venous flow noted in the right common femoral vein.
== END 2018-04-20 16:59 | disposition home or self-care (01) ==
LOC: C.ER 11:25
DX: M25.552 Pain in left hip (principal); M54.40 Lumbago with sciatica, unspecified side; E78.00 Pure hypercholesterolemia, unspecified; I12.9 Hypertensive chronic kidney disease with stage 1 through stage 4 chronic kidney disease, or unspecified chronic kidney disease; N18.9 Chronic kidney disease, unspecified; M19.90 Unspecified osteoarthritis, unspecified site
CPT/HCPCS: 73502; 93971; 96372; 99284; J1885

== ENCOUNTER 2018-08-29 10:34 | Outpatient (CLI) | payer MEDICARE | END 2018-08-29 10:35 | disposition home or self-care (01) | LOC: C.RADIC 10:34 | DX: M25.511 Pain in right shoulder (principal) ==